=== PATIENT | male | born 1955 | race Caucasian/White ===

== ENCOUNTER → 2016-05-28 | Outpatient (CLI) | payer BC ==
[~2016-05-28] MED LIST: ASPIRIN81 M1 PO; AUGMENTIN 875 M1 TAB PO; BACTRIM DS 8001 TA1 PO; CIPRODEX 0.3%-7.5 ML OT; CLINDAMYCIN HC300 MG PO; EFFIENT10 MG PO; GABAPENTIN300 MG PO; GLIPIZIDE10 M2 PO; GLYBURIDE5 MG PO; KEFLEX500 MG PO; LOSARTAN POTASS25 M1 PO; METFORMIN1000 MG PO; METOPROLOL SR50 MG PO; NEURONTIN300 MG PO; NORVASC5 MG PO; NOVOLOG 701 UNIT/0.0 SC; RELION NOV100 UNIT/1 SQ; SIMVASTATIN40 MG PO; TOPROL XL25 MG PO; TREXALL10 MG PO; ZYRTEC10 MG PO
[2016-05-28 15:06] LABS: INTERNATIONAL NORM RATIO 1.2 (2.0-3.5); PROTHROMBIN TIME 12.7 SECONDS (9.0-12.4)
== END | disposition home or self-care (01) ==
LOC: LAB 14:17
PROVIDERS: Internal Medicine
DX: I48.91 Unspecified atrial fibrillation (principal)

== ENCOUNTER → 2016-08-29 | Outpatient (CLI) | payer BC ==
[2016-08-29 16:33] LABS: INTERNATIONAL NORM RATIO 1.5 (2.0-3.5); PROTHROMBIN TIME 16.1 SECONDS (9.0-12.4)
== END | disposition home or self-care (01) ==
LOC: LAB 15:59
PROVIDERS: Internal Medicine
DX: I48.91 Unspecified atrial fibrillation (principal)

== ENCOUNTER 2016-12-31 15:57 | Inpatient (IN) | payer BC ==
[~2016-12-31] VITALS: Ht 165.1 cm; Wt 118.1 kg
--- NOTE | ~2016-12-31 | PR ---
[place], [place] PROGRESS NOTE NAME: RAFI FOSTER UNIT #: [id number] ROOM: 415 DOCTOR: CORWIN ZEPEDA MD BIRTHDATE: [birth year] DOS: 01/04/2017 SUBJECTIVE: The patient is very well known to us. He was admitted recently with osteomyelitis of the right big toe and sepsis. The patient is not having any new complaints this morning. He did have a debridement yesterday. OBJECTIVE: VITAL SIGNS: Pressure is 132/54, pulse of 64, respirations 20, temperature 98.0. LUNGS: Clear. HEART: Regular. ABDOMEN: Obese. EXTREMITIES: No edema, evidence of stasis dermatitis, both legs. The right big toe, dressings were removed. The wound is very large, about affecting the whole base of the big toe, which is about at least a centimeter or more deep. The wound looks clean without any evidence of cellulitis, no drainage noted. LABORATORY DATA: No labs available. ASSESSMENT AND PLAN: 1. Osteomyelitis of the distal and proximal phalanx of the great toe, septic arthritis and cellulitis with sepsis, on IV Rocephin. A PICC line has been placed and the patient is being discharged on IV antibiotics. 2. Severe peripheral vascular disease. He was admitted to the hospital last in February 2016, underwent a CT angiogram. He wanted to go to [facility] for procedure. He was sent there late February as an outpatient. He was seen by Vascular Surgery, but nothing further was done and after that he never followed up in the office. He called about 2 weeks ago for an antibiotic for the foot, but I did not see him. So, this time, I did speak to the patient's about having a CT angiogram done as an outpatient again and possible revascularization. 3. Type 2 diabetes mellitus, poorly controlled. His blood sugar was 166 this morning. His hemoglobin A1c is 10.5 indicating his poor control. He is encouraged to take his insulin, which he mostly refuses to take because his insurance does not pay for it. [place], [place] PROGRESS NOTE NAME: RAFI FOSTER UNIT #: [id number] ROOM: 415 DOCTOR: CORWIN ZEPEDA MD BIRTHDATE: [birth year] CORWIN ZEPEDA MD CM:PNTRANS [id number] CORWIN ZEPEDA MD 01/04/17 1148 interface
--- NOTE | ~2016-12-31 | PR ---
[place], [place] PROGRESS NOTE NAME: RAFI FOSTER UNIT #: [id number] ROOM: 415 DOCTOR: PIERCE IRWIN DPM BIRTHDATE: [birth year] DOS: 01/04/2017 SUBJECTIVE: The patient presents 1 day postop I and D with bone biopsy, right hallux. The patient feels improvement at this time. The patient is apparently being discharged later this morning. OBJECTIVE: Upon removal of dressing and packing, there is mild erythema still surrounding the hallux. No signs of purulent drainage or foul odor. Postop site is improving. ASSESSMENT: Postop I and D with bone biopsy, right hallux. PLAN: Packing and dressing change, wet to dry dressing at this visit. Home nursing will continue same orders. The patient will be seen at the [facility] for possible hyperbaric oxygen consultation and possible wound VAC consultation. We will notify Dr. Anthony of the patient's status and we will follow the patient if need be. PIERCE IRWIN DPM CM:PNTHO [id number] [id number] PIERCE IRWIN DPM 01/04/171829 interface
--- NOTE | ~2016-12-31 | PR ---
[place], [place] PROGRESS NOTE NAME: RAFI FOSTER UNIT #: [id number] ROOM: 415 DOCTOR: PAVEL KEARNEY,ANGELLA Reyes BIRTHDATE: [birth year] DOS: 01/02/2017 SUBJECTIVE: The patient with diabetic foot ulcer involving the right big toe with osteomyelitis. The patient apparently is being taken for surgery by the foot doctor tomorrow for a bone biopsy as discussed with Dr. Norton the wound doctor and Dr. Merida foot doctor is following her. Positive blood cultures for gram-negative bacilli. The patient is on meropenem, vancomycin and Zosyn. The patient for PICC line placement for IV antibiotics. IMPRESSION: 1. Type 2 diabetes mellitus, uncontrolled with hemoglobin A1c of 10.7 with poor compliance with treatment and diet. 2. Coronary artery disease of the [place] vessels without chest pains. 3. Severe peripheral arterial disease with bilateral common femoral artery stenosis. 4. Poor compliance with treatment and followup and poor insight into medical issues. 5. Benign essential hypertension. Blood pressure being monitored and treated. ANGELLA ZHAO MD CM:PNTRANS [id number] ANGELLA ZHAO MD 01/03/17 0534 interface
--- NOTE | ~2016-12-31 | O ---
[place], [place] OPERATIVE NOTE NAME: RAFI FOSTER UNIT #: [id number] ROOM: 415 DOCTOR: ALEKSANDRA BLOUNT DPM BIRTHDATE: [birth year] DOS: 01/03/2017 SURGEON: Aleksandra Blount DPM. PREOPERATIVE DIAGNOSIS: Infected ulceration, right great toe with probable abscess and osteomyelitis. POSTOPERATIVE DIAGNOSIS: Infected ulcer, right great toe with small abscess and osteomyelitis. PROCEDURE: Incision and drainage of abscess, right great toe with bone biopsy. ESTIMATED BLOOD LOSS: About 3 mL. ANESTHESIA: Administered per anesthesia record. INJECTABLES: 10 mL of 0.5% Marcaine plain. COMPLICATIONS: None. DESCRIPTION OF PROCEDURE: After proper preoperative evaluation, the patient was brought in the OR and placed on the OR table in supine position. Anesthesia was then administered per anesthesia record. Next, a total of 10 mL of 0.5% Marcaine plain was injected in field block fashion proximal to the right great toe. The area was then prepped and draped in usual sterile manner. Right foot was lowered to the surgical field. Attention was directed to the plantar surface of the right great toe where there is to be a fairly large ulceration. There was noted to be some erythema and edema around the ulceration mostly proximal and plantarly. Next, using a rongeur, a necrotic or nonviable tissue was debrided from the wound. Please note that the interphalangeal joint of the great toe was exposed and bone was exposed. Also, of note was that the FHL tendon was ruptured and proximal secondary to the infection. At this time, a [place] elevator was used, and it was found that there was found to be about 2-3 cm sinus tract proximally. This area was incised, and there was found to be a small abscess containing about 1 mL of purulent drainage. At this time using a rongeur, bone biopsy were taken from the head of the proximal phalanx. The bone was found to be very soft and most likely infected. There was no purulence in the bone. Bone cultures were then taken to be sent for Eddie stain and culture and sensitivity aerobic and anaerobic. Next, using a pulse air conditioning installer approximately 3 liters of normal saline was irrigated through the wound. There was good bleeding noted to the wound. There were no signs of any necrotic tissue remaining. A Bovie was used to cauterize any bleeders as necessary. The wound was now very clean and packing was applied followed by 4 x 4s, ABD, Kerlix and Sonny wrap. CFT was maintained to the digit throughout the whole procedure. The patient tolerated procedure and anesthesia well and was transported to recovery room with vital signs stable and intact. He will be followed up tomorrow for dressing change. [place], [place] OPERATIVE NOTE NAME: KRISTINRAFI W UNIT #: [id number] ROOM: [facility] DOCTOR: ALEKSANDRA BLOUNT DPM BIRTHDATE: [birth year] ALEKSANDRA BLOUNT DPM CM:OPRECORD:OPERATIVE NOTE 2 2 ALEKSANDRA BLOUNT DPM 01/03/17832 interface
--- NOTE | ~2016-12-31 | PR ---
[place], [place] PROGRESS NOTE NAME: RAFI FOSTER [facility] #: [id number] UNIT #: [id number] ROOM: 415 DOCTOR: DUKE AntunezAMY BIRTHDATE: [birth year] DOS: 01/02/2017 SUBJECTIVE: The patient states that he feels okay. He did feel some chills during the night. His toe does have some discomfort associated with it. He states it is really not severe, but he has noticed some discomfort. No other specific complaints are noted. He did have a low-grade temperature during the night of 99.4 to 99.6, but no fever spikes. OBJECTIVE: VITAL SIGNS: Today, his temperature is 98.6, pulse is 69, respirations are 20 and blood pressure is 159/70. SKIN: The dressing was removed. The wound looks about the same as yesterday. It does not seems to have deteriorated. There is no odor. There is some deeper area still present as before. The erythema that was present seems to have gone down a little bit and has not advanced up the foot that I can tell and that does not seem to have worsened. LABORATORY DATA: He does not have any blood work done or any blood work this morning. His white count was not reordered, but he does have a very high elevated hemoglobin A1c of 10.7, his CRP is elevated at 11 and his sed rate is 73. He did have his Doppler ultrasound done which is suspicious of significant right femoral popliteal disease, consideration of a CT angiogram for further evaluation and no significant arterial occlusive disease in the left leg. ASSESSMENT AND PLAN: Diabetic foot ulcer, Villanueva stage 3, with osteomyelitis, bacteremia. He is on IV antibiotics, vancomycin as well as Zosyn. The wound culture from yesterday shows many white blood cells, a few Gram-positive cocci and moderate Gram-negative bacilli. He did have another positive blood culture yesterday at 10 in the morning. His initial wound culture grew Proteus. He is going to have IV antibiotics and we will add Santyl to the regimen now for wound care. However, he does have a fairly large ulceration on his right great toe as well as acute osteomyelitis and evidence of septic arthritis. Surgical intervention may be appropriate. Podiatry has not seen the patient yet, but they will be seeing the patient today. He does have some arterial disease as well and this may need to be further worked up as well. This patient may be a candidate for hyperbaric oxygen in the future depending on how he responds to treatment. [place], [place] PROGRESS NOTE NAME: RAFI FOSTER UNIT #: [id number] ROOM: [facility] DOCTOR: AMY WALL M.D. BIRTHDATE: [birth year] AMY WALL MD CM:ALMAS [id number] AMY WALL M.D. 01/02/17 1246 interface
--- NOTE | ~2016-12-31 | CON ---
[place], [place] REPORT OF CONSULTATION [id number] UNIT #: [id number] ROOM: 415 DOCTOR: DUKE AntunezAMY BIRTHDATE: [birth year] DOS: 01/01/2017 WOUND CARE CONSULTATION CHIEF COMPLAINT: Right toe ulceration. HISTORY OF PRESENT ILLNESS: This is a 61-year-old old male who was admitted to the Emergency Room Department. He apparently has been having trouble with an ulcer of his right great toe for approximately 1 month now. He had been using some topical Neosporin on it without any improvement and has been treated with oral antibiotics as outpatient a week prior to him coming to the ER, but felt that the wound was getting worse and did not notice any improvement. He is diabetic and has never had an ulcer of his toe before. He was admitted for an infection of the right great toe to the Emergency Department. PAST MEDICAL HISTORY: Significant for the following: Atrial fibrillation with a rapid ventricular response, left leg cellulitis and morbid obesity with a BMI of 40-44.9, history of sepsis. He is status post angioplasty 10 years ago. He says he has had two heart stents in, arthroscopy of the right knee and tonsillectomy. He also has had problems with venous disease as well in the past. He has never had any leg ischemia that he is aware of. Rheumatoid arthritis. Medical charts also indicate peripheral vascular disease, high-grade stenosis of the superficial femoral artery, bilateral stenosis of the common femoral and of both sides. SOCIAL HISTORY: He does not smoke or drink. He is employed and works on his feet for several hours a day. FAMILY HISTORY: Hypertension, diabetes, coronary artery disease, cerebrovascular accident. ALLERGIES: No known drug allergies. MEDICATIONS: Current medications from home are methotrexate 10 mg p.o. on , aspirin 81 daily, simvastatin 20 daily, losartan 25 p.o. daily, gabapentin 300 daily, Toprol-XL 25 p.o. b.i.d. REVIEW OF SYSTEMS: The patient did have a fever last night upon admission and during the fever he felt chills. He really has no pain with this wound. He has not had any debridement of the wound or Podiatry followup in the past. He does not have any special diabetic shoes. He denies any chest pain, shortness of breath, nausea, vomiting, abdominal pains, or diarrhea and no pain currently with the wound at this time, The patient reports also that he is on Coumadin, although I do not see that on his medication list, so we will see if we can verify this. PHYSICAL EXAMINATION: VITAL SIGNS: Temperature today is 98.2, pulse of 72, respirations are 20, blood pressure is 159/72. The patient, however, did have a fever last night of 102.4, but this morning he is afebrile. [place], [place] REPORT OF CONSULTATION NAME: RAFI FOSTER UNIT #: [id number] ROOM: 415 DOCTOR: AMY WALL M.D. BIRTHDATE: [birth year] GENERAL: This is a male who is pleasant, cooperative, in no acute distress. HEENT: Oropharynx is clear. Sclerae nonicteric. NECK: Supple. There is no JVD. LUNGS: Fairly clear. There is fine crackles in the bases. CARDIOVASCULAR: S1, S2. Regular rate and rhythm. ABDOMEN: Morbidly obese and soft. EXTREMITIES: He has chronic venous stasis changes and no calf tenderness. He has a fairly large ulceration of the right great toe. There is a strong odor coming from the wound. There is associated erythema of the right great toe and swelling noted. There is a large amount of devitalized tissue that is measuring approximately 2.5 x 2 x 0.2 cm in depth. There is definitely undermining noted as well from 12-6 o'clock with a maximum depth of 0.5. LABORATORY DATA: From yesterday show white count of 13,000, hemoglobin 14, platelets of 384. Chem-7 has sodium of 136, potassium 4.3, chloride of 103, BUN of 18, creatinine of 0.84, glucose is 170. Albumin is 3.2. I do not see any new labs today. There is no ESR, CRP, or hemoglobin A1c. His wound culture from the ER is growing heavy gram-negative bacilli. Blood cultures are positive with gram-negative bacilli as well. His x-ray of his toe shows a soft tissue ulcer with mild cortical irregularity of the proximal and distal phalanx of the right great toe suspicious for osteo. Followup MRI or 3-phase bone scan is recommended. Due to the presence of infection and obvious large amount of necrosis present, a bedside debridement was done. It was recommended, the patient was agreeable. The area was debrided of devitalized tissues through subcutaneous. I did not appreciate any bone, although there was an area where the depth was noted to be quite deep. There was brisk bleeding that was controlled with pressure and silver nitrate was applied. The post-debridement measurements are 2.9 x 2 x 1.2 in depth in one of the deepest part of the area. His MRI was just reported and is back already, I see the result is showing a large focus of ulceration along the medial aspect of the first toe with extensive cellulitis and soft tissue gas. There is no drainable abscess. There is acute osteo and osseous destruction of the distal and proximal phalanx of the great toe with evidence of septic arthritis of the interphalangeal joints. Soft tissue swelling is noted as well. ASSESSMENT AND PLAN: Diabetic foot ulcer that is infected with osteomyelitis. There is bacteremia as well, which is noted. Debridement was done at the bedside; however, after the review of the MRI, the patient may benefit from further surgical debridement, possible bone debridement, so Podiatry consultation is also going to be done as well. In the meantime, we can use Amaru Ag ribbon to the area until further orders are written by Podiatry. The patient may benefit from hyperbaric oxygen in the future; however, he has to have 30 days of wound care prior to being considered an HBO candidate. I would also recommend to get baseline ESR, CRP, hemoglobin A1c as well as a baseline EKG and chest x-ray while he is in-house if we are going to be considering hyperbaric oxygen in the future, but this patient may need further surgical intervention and also arterial studies were ordered. Thank you for the consult. I will follow along with you. [place], [place] REPORT OF CONSULTATION NAME: KRISTINRAFI W UNIT #: [id number] ROOM: 415 DOCTOR: AMY WALL M.D. BIRTHDATE: [birth year] AMY WALL MD CM:CONSTR:REPORT OF CONSULTATION 99 01/07/17 9039 interface
--- NOTE | ~2016-12-31 | CON ---
[place], [place] REPORT OF CONSULTATION NAME: [facility]OST[facility] #[facility] [id number] UNIT #: [id number] ROOM: 415 DOCTOR: ALIDA WADEPIERCE J BIRTHDATE: [birth year] DOS: 01/02/2017 SUBJECTIVE: The patient is a 61-year-old male with chief complaint of infected ulceration of the right great toe. The patient was treated previously by Dr. Munoz for approximately 1 month with outpatient oral antibiotics. The patient subsequently went to the Emergency Room on 12/31/2016 after the toe became worse. The patient was subsequently admitted. PAST MEDICAL HISTORY: The patient has a past medical history of atrial fibrillation, morbid obesity with BMI of 40.0 to 44.9, RA, [place] at age 36, essential hypertension. PAST SURGICAL HISTORY: History of coronary artery stents. SOCIAL HISTORY: Denies smoking, illicit drugs or alcohol use. FAMILY HISTORY: Father and mother both , age unknown. 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 ALLERGIES: None. PHYSICAL EXAMINATION: EXTREMITIES: Lower extremity examination: Pedal pulses diminished, bilateral. Chronic venous stasis; bilateral lower extremity. The patient has an ulceration in the plantar aspect of the right hallux measuring approximately 2.6 x 2 x 0.2 cm. The patient had the wound debrided by Dr. Norton yesterday. There is mild serous drainage to the site. There is minimal soft tissue coverage overlying the bone of the plantar medial hallux. There appears to be no proximal sinus tract at this time, appears to be no drainable abscess. The patient's MRI of the right foot revealed ulceration, medial aspect, first right toe, with soft tissue gas, extensive cellulitis, no drainable abscess identified. Acute osteomyelitis and osseous destruction of the distal and proximal phalanx of the great toe with evidence of septic arthritis of the IPJ, soft tissue swelling, and edema. Results of the ultrasound arterial exam revealed suspicion of significant right femoral popliteal disease. Additionally, clinically, after Dr. Norton removed the tissue with debridement, there does not appear to be acute underlying pocket that needs to be drained stat. The patient will be taken for surgical intervention tomorrow morning by Dr. Blount with debridement and bone biopsy. Discussed with the patient and his . He will also need vascular intervention due to the vascular findings and that he is at risk to lose his toe or lower extremity due to the decreased arterial flow. They both understood this, understand the risks and complications associated with the procedure. The patient has Infectious Disease on the case for IV antibiotic management. The patient is going for a PICC line today and the patient will be n.p.o. after midnight tonight and surgical consent for incision and drainage with debridement and bone biopsy of the right hallux to be performed tomorrow by Dr. Blount. [place], [place] REPORT OF CONSULTATION NAME: KRISTINRAFI W UNIT #: [id number] ROOM: [facility] DOCTOR: PIERCE IRWIN DPM BIRTHDATE: [birth year] PIERCE IRWIN DPM CM:CONSTR:REPORT OF CONSULTATION 1216 01/05/17 0700 interface
--- NOTE | ~2016-12-31 | DS ---
[place], [place] DISCHARGE SUMMARY [id number] UNIT #: [id number] ROOM: 415 DOCTOR: ANGELLA ZHAO MD BIRTHDATE: [birth year] DOS: 01/03/2017 DISCHARGE DIAGNOSES: 1. Diabetic foot ulcer with incision and drainage performed of the right great toe. 2. Osteomyelitis of the right great toe related to diabetic foot ulcer. 3. Uncontrolled type 2 diabetes mellitus with controlled blood sugars during this hospital stay. 4. Coronary artery disease of the [place] vessels without chest pain. 5. Severe peripheral arterial disease, bilateral common femoral artery stenosis. 6. Poor compliance with treatment and poor insight into medical issues. 7. Benign essential hypertension. 8. Obesity. 9. Rheumatoid arthritis. 10. Mixed hyperlipidemia. 11. Benign essential hypertension. HOSPITAL COURSE: 1. The patient presented to the Emergency Department with progressive infection involving the right great toe for about a month, which was treated with antibiotics as an outpatient. The patient was found to have a large necrotic 2 cm wound on the bottom and the outside of the right great toe with surrounding area of redness and cellulitis. The wound was about 3 mm deep and was debrided by Dr. Norton, the wound doctor and then later on taken for surgery by Dr. Merida, the foot doctor this morning for wound debridement and cultures. The patient was seen by Infectious Disease specialist, Dr. Olivarez and she has recommended IV antibiotics, Rocephin 2 grams IV for 6 weeks, which is being arranged. The patient does not want to go to intermediate facility, so he will be sent home with the visiting nurses and follow up with [facility] and the foot doctors and Dr. Olivarez, the ID specialist. We are trying to arrange IV antibiotics for him for home. 2. Uncontrolled type 2 diabetes mellitus with better controlled sugars during his stay at the hospital. The patient has known poor compliance with medical treatment. 3. Early signs of sepsis and blood cultures growing gram-negative bacilli and Proteus mirabilis growing in one of the culture bottles sensitive to all antibiotics except for tetracycline. 4. Benign essential hypertension with controlled blood pressures. 5. Severe peripheral arterial disease with previous history of bilateral common femoral artery stenosis. 6. Coronary artery disease of [place] vessels without chest pains. LABORATORY DATA: Hemoglobin 13.5, white cell, no leukocytosis, platelets normal. Wound cultures growing Proteus mirabilis. Blood cultures growing gram-negative bacilli. DISCHARGE MANAGEMENT: IV Rocephin 2 gm daily for 6 weeks. The patient to follow up with [facility] and Dr. Olivarez, the ID specialist. [place], [place] DISCHARGE SUMMARY NAME: RAFI FOSTER UNIT #: [id number] ROOM: [facility] DOCTOR: PAVEL KEARNEY,ANGELLA Reyes BIRTHDATE: [birth year] DISCHARGE MEDICATIONS: Lipitor 40 mg a day, Plavix 75 mg a day, glipizide 10 mg daily, gabapentin 300 mg b.i.d., losartan 25 mg a day, amlodipine 10 mg a day, 70/30 insulin 20 units subcu b.i.d., metoprolol 25 mg b.i.d., continue Coumadin as he was taking at home and hold patient's methotrexate until infection is resolved. ANGELLA ZHAO MD CM:ROB [id number] 1501 ANGELLA ZHAO MD 01/03/17 1501 interface
--- NOTE | ~2016-12-31 | WRIGHTHP ---
[place], [place] PATIENT HISTORY AND PHYSICAL EXAM NAME: RAFI FOSTER [facility] #: [id number] UNIT #: [id number] ROOM: 415 DOCTOR: ANGELLA ZHAO MD BIRTHDATE: [birth year] DOS: 12/31/2016 HISTORY OF PRESENT ILLNESS: The patient is a 61-year-old gentleman with a past medical history of: 1. Benign essential hypertension. 2. Long-standing type 2 diabetes mellitus, insulin requiring. 3. Poor compliance with treatment and poor insight into his medical issues. 4. Mixed hyperlipidemia. 5. Rheumatoid arthritis. 6. Coronary artery disease of shoshone-paiute vessels. 7. Severe peripheral vascular disease with high grade stenosis of the superficial femoral artery, bilateral stenosis of the common femoral, both sides. The patient presented to the Emergency Department at [facility] for progressive infection involving the right great toe. The patient had this wound at the right toe with spreading infection for about 1 month, which was treated as an outpatient with oral antibiotics. In the ER, the patient was found to have large necrotic 2 cm ulcer/wound of the right great toe and he also had developed fever. The patient was recommended for admission. The foot doctor, Infectious Disease specialists and the client application support specialist have been consulted. No chest pain. No shortness of breath. No GI or urinary symptoms. REVIEW OF SYSTEMS: LUNGS: No increasing shortness of breath or wheezing. GASTROINTESTINAL: No nausea, vomiting, diarrhea, constipation. CARDIOVASCULAR: No chest pains or palpitations. HOME MEDICATIONS: Gabapentin, losartan, amlodipine, metoprolol. ALLERGIES: No known drug allergies. PHYSICAL EXAMINATION: GENERAL: The patient alert and oriented x 3, moderately obese, in no visible distress. HEENT AND NECK: Extraocular movements are intact. Sclerae are anicteric. Oral mucosa is moist and clean. No obvious facial weakness. Neck is supple without any lymphadenopathy. No thyromegaly. No JVD. No carotid arterial bruits. LUNGS: Clear to auscultation. No wheezing. No rhonchi. CARDIOVASCULAR SYSTEM: Heart rate is regular in rate and rhythm. S1 and S2 normally audible. No significant murmur or any other abnormal cardiac sounds. ABDOMEN: Soft, nontender. No obvious organomegaly. Bowel sounds are present. No obvious herniation. EXTREMITIES: Swelling of the right great toe with redness, inflammation spreading around the wound at the bottom of the right great toe, measuring about 2 cm x 2 cm with necrotic base, about 3 mm deep and foul smelling. CENTRAL NERVOUS SYSTEM: Alert and oriented x 3. Cranial nerves II-XII are intact. Speech is normal. The patient is able to move all extremities. Normal [place], [place] PATIENT HISTORY AND PHYSICAL EXAM NAME: RAFI FOSTER UNIT #: [id number] ROOM: 415 DOCTOR: ANGELLA ZHAO MD BIRTHDATE: [birth year] muscle strength. Deep tendon reflexes are equal on both sides. Plantars were downgoing. LABORATORY DATA: Blood cultures growing gram-negative bacilli. White cell count of 13,000. IMPRESSION: 1. The patient with diabetic right foot ulcer, necrotic wound at the bottom of the right great toe with spreading cellulitis and infection to be treated with debridement. Wound care, Podiatry and Infectious Disease are on consult and patient started on IV vancomycin by ID. Wound cultures have been sent. 2. Early signs of sepsis with blood cultures growing gram-negative bacilli, 3/4 bottles. I will add Zosyn to the antibiotics and watch closely. 3. Type 2 diabetes mellitus. We will monitor blood sugars and treat accordingly. The patient has uncontrolled diabetes and is poorly compliant with treatment and does not take his insulin at home. 4. Benign essential hypertension. We will monitor blood pressures and treat accordingly. 5. History of coronary artery disease of shoshone-paiute vessels without chest pains or any other symptoms. 6. Severe peripheral arterial disease with bilateral stenosis of left common femoral arteries on CT angiogram done in the past. 7. Poor compliance with medical treatment and followup and insulin and medications and poor insight into medical issues, which makes his treatment even more difficult and complicated. ANGELLA ZHAO MD CM:HISPHYS:PATIENT HISTORY AND PHYSICAL EXAMINATION [id number] ANGELLA ZHAO MD 01/01/17 1123 interface
[2016-12-31 16:03] VITALS: BP 181/70
[2016-12-31 16:31] VITALS: BP 140/86
[2016-12-31 16:37] LABS: HEMATOCRIT 43.6 % (42.0-52.0); HEMOGLOBIN 14.4 g/dl (14.0-18.0); MEAN CELL VOLUME 81.6 fl (80.0-94.0); MEAN PLATELET VOLUME 8.7 fl (9.6-12.3); PLATELET COUNT AUTOMATED 384 10*3/uL (130-400); RED BLOOD COUNT 5.34 10*6/uL (4.50-5.90); RED CELL DISTRI WIDTH 15.8 % (0-14.5); WHITE BLOOD COUNT 13.3 10*3/uL (4.8-10.8)
[2016-12-31 16:52] LABS: ALBUMIN 3.2 gm/dl (3.1-4.5); ALKALINE PHOSPHATASE 137 U/L (45-117); BILIRUBIN, TOTAL 0.6 mg/dl (0.2-1.0); BUN 18 mg/dl (7-24); CARBON DIOXIDE 26 mmol/L (21-32); CHLORIDE 103 mmol/L (98-107); EST GLOM FILT AFRICAN AMERICAN > 60 ml/min; GLUCOSE 170 mg/dL (65-99); POTASSIUM 4.3 mmol/L (3.5-5.1); SGOT/AST 27 IU/L (3-35); SGPT/ALT 41 U/L (12-78); SODIUM 136 mmol/L (136-145); TOTAL PROTEIN 8.1 gm/dL (6.4-8.2)
[2016-12-31 16:56] LABS: BASOPHIL # 0.1 10*3/uL (0-0.1); BASOPHILS 1 % (0-1); EOSINOPHIL # 0.1 10*3/uL (0-0.4); EOSINOPHILS 1 % (1-4); LYMPHOCYTE # 1.5 10*3/uL (1.3-4.4); MONOCYTE # 1.6 10*3/uL (0.1-1.0); NEUTROPHILS 75 % (47-73); TOTAL CELLS COUNTED 100 #CELLS
[2016-12-31 16:57] LABS: PLATELET SUFFICIENCY NORMAL (NORMAL)
[2016-12-31 18:00] VITALS: BP 134/76
[2016-12-31 18:09] VITALS: BP 170/80
[2016-12-31] MEDS ORDERED: NOVOLOG MI100 UNIT/2 SQ (19:39)
[2016-12-31] MEDS ORDERED: NEURONTIN300 MG PO (19:39)
[2016-12-31] MEDS ORDERED: NATURE'S BLEND F1 MG PO (19:40)
[2016-12-31] MEDS ORDERED: PLAVIX75 M1 PO (19:41)
[2016-12-31] MEDS ORDERED: JANTOVEN6 M1 PO ×2 (19:41→19:58)
[2016-12-31] MEDS ORDERED: LIPITOR40 MG PO (19:42)
[2016-12-31] MEDS ORDERED: NORVASC10 MG PO (19:42)
[2016-12-31 20:00] VITALS: BP 157/91
[2017-01-01] VITALS: BP 158/85
[2017-01-01 08:00] VITALS: BP 151/79; BP 152/78
[2017-01-01 12:00] VITALS: BP 159/72
[2017-01-01 16:00] VITALS: BP 138/62
[2017-01-01 20:00] VITALS: BP 130/48
[2017-01-02] VITALS: BP 151/57
[2017-01-02 06:50] LABS: BILIRUBIN NEGATIVE (NEGATIVE); BLOOD TRACE-LYSED (NEGATIVE); CLARITY CLEAR (CLEAR); COLOR YELLOW (YELLOW); GLUCOSE NEGATIVE (NEGATIVE); KETONE NEGATIVE (NEGATIVE); LEUKO ESTERASE NEGATIVE (NEGATIVE); NITRITE NEGATIVE (NEGATIVE); PROTEIN TRACE (NEGATIVE)
[2017-01-02 07:01] LABS: URINE REFLEX COMMENT NO (NO)
[2017-01-02 07:47] LABS: HEMOGLOBIN A1c 10.7 % (4.8-5.6)
[2017-01-02 08:00] VITALS: BP 159/70
[2017-01-02 12:00] VITALS: BP 150/68
[2017-01-02 16:00] VITALS: BP 128/96
[2017-01-02 20:00] VITALS: BP 153/51
[2017-01-03] VITALS (9 sets, daily range): BP systolic 127–161; BP diastolic 53–78
[2017-01-03 10:25] LABS: BASO % 0.4 % (0.0-1.0); EOS # 0.4 10*3/uL (0.0-0.4); EOS % 3.6 % (1.0-4.0); HEMATOCRIT 41.6 % (42.0-52.0); HEMOGLOBIN 13.5 g/dl (14.0-18.0); LYMPH # 1.9 10*3/uL (1.3-4.4); LYMPH % 18.8 % (27.0-41.0); MEAN CELL VOLUME 82.1 fl (80.0-94.0); MEAN CORPUSCULAR HGB 26.6 pg (27.0-31.0); MEAN CORPUSCULAR HGB CONC 32.5 g/dl (33.0-37.0); MEAN PLATELET VOLUME 8.9 fl (9.6-12.3); MONO # 1.3 10*3/uL (0.1-1.0); MONO % 13.3 % (3.0-9.0); NEUT # 6.3 10*3/uL (2.3-7.9); NEUT % 63.6 % (47.0-73.0); PLATELET COUNT AUTOMATED 320 10*3/uL (130-400); RED BLOOD COUNT 5.07 10*6/uL (4.50-5.90); WHITE BLOOD COUNT 9.9 10*3/uL (4.8-10.8)
[2017-01-03 10:53] LABS: BUN 9 mg/dl (7-24); CARBON DIOXIDE 23 mmol/L (21-32); CHLORIDE 111 mmol/L (98-107); EST GLOM FILT AFRICAN AMERICAN > 60 ml/min; GLUCOSE 150 mg/dL (65-99); POTASSIUM 3.6 mmol/L (3.5-5.1); SODIUM 141 mmol/L (136-145)
[2017-01-03] MEDS ORDERED: CEFTRIAXON2 GM/50 ML IV (12:28)
[2017-01-04] VITALS: BP 132/54
[2017-01-04 07:37] LABS: BUN 11 mg/dl (7-24); C-REACTIVE PROTEIN 8.77 MG/DL (0-0.3); CARBON DIOXIDE 28 mmol/L (21-32); CHLORIDE 105 mmol/L (98-107); EST GLOM FILT AFRICAN AMERICAN > 60 ml/min; GLUCOSE 198 mg/dL (65-99); SODIUM 137 mmol/L (136-145)
[2017-01-04 07:52] LABS: BASO # 0.1 10*3/uL (0.0-0.1); BASO % 0.5 % (0.0-1.0); EOS # 0.5 10*3/uL (0.0-0.4); EOS % 4.4 % (1.0-4.0); HEMATOCRIT 41.9 % (42.0-52.0); HEMOGLOBIN 13.7 g/dl (14.0-18.0); LYMPH # 2.3 10*3/uL (1.3-4.4); LYMPH % 20.3 % (27.0-41.0); MEAN CELL VOLUME 82.6 fl (80.0-94.0); MEAN CORPUSCULAR HGB CONC 32.7 g/dl (33.0-37.0); MEAN PLATELET VOLUME 9.3 fl (9.6-12.3); MONO # 1.4 10*3/uL (0.1-1.0); MONO % 12.9 % (3.0-9.0); NEUT # 6.9 10*3/uL (2.3-7.9); NEUT % 61.6 % (47.0-73.0); PLATELET COUNT AUTOMATED 363 10*3/uL (130-400); RED BLOOD COUNT 5.07 10*6/uL (4.50-5.90); RED CELL DISTRI WIDTH 15.9 % (0-14.5); WHITE BLOOD COUNT 11.1 10*3/uL (4.8-10.8)
[2017-01-04 08:00] VITALS: BP 148/64
== END 2017-01-04 13:00 | disposition home or self-care (01) | DRG 854 ==
LOC: ED 15:57 → 4E 18:17 → EDHOLD 18:17 → 4E 18:21
PROVIDERS: Emergency Medicine; Hospitalist; Internal Medicine
PROC: 02HV33Z Insertion of Infusion Device into Superior Vena Cava, Percutaneous Approach (ICD-10-PCS; principal; 2017-01-03)
PROC: 0JDQ0ZZ Extraction of Right Foot Subcutaneous Tissue and Fascia, Open Approach (ICD-10-PCS; 2017-01-03)
PROC: 0QBQ0ZX Excision of Right Toe Phalanx, Open Approach, Diagnostic (ICD-10-PCS; 2017-01-03)
PROC: 0J9Q0ZZ Drainage of Right Foot Subcutaneous Tissue and Fascia, Open Approach (ICD-10-PCS; 2017-01-03)
DX: A41.9 Sepsis, unspecified organism (principal); M00.871 Arthritis due to other bacteria, right ankle and foot; E11.621 Type 2 diabetes mellitus with foot ulcer; E11.65 Type 2 diabetes mellitus with hyperglycemia; M86.8X7 Other osteomyelitis, ankle and foot; L02.611 Cutaneous abscess of right foot; Z68.41 Body mass index [BMI] 40.0-44.9, adult; E11.69 Type 2 diabetes mellitus with other specified complication; L97.519 Non-pressure chronic ulcer of other part of right foot with unspecified severity; I25.10 Atherosclerotic heart disease of native coronary artery without angina pectoris; I73.9 Peripheral vascular disease, unspecified; I77.1 Stricture of artery; I10 Essential (primary) hypertension; M06.9 Rheumatoid arthritis, unspecified; E78.2 Mixed hyperlipidemia; E66.9 Obesity, unspecified; L03.031 Cellulitis of right toe; I48.91 Unspecified atrial fibrillation; B96.4 Proteus (mirabilis) (morganii) as the cause of diseases classified elsewhere; Z79.4 Long term (current) use of insulin; Z79.899 Other long term (current) drug therapy; Z91.19 Patient's noncompliance with other medical treatment and regimen; Z90.49 Acquired absence of other specified parts of digestive tract; Z79.01 Long term (current) use of anticoagulants; Z83.3 Family history of diabetes mellitus; Z82.49 Family history of ischemic heart disease and other diseases of the circulatory system; Z82.3 Family history of stroke; Z95.5 Presence of coronary angioplasty implant and graft; I25.2 Old myocardial infarction

== ENCOUNTER → 2017-01-10 | Outpatient (CLI) | payer BC ==
[~2017-01-10] MED LIST changes: +CEFTRIAXON2 GM/50 ML IV; +JANTOVEN6 M1 PO; +LIPITOR40 MG PO; +NATURE'S BLEND F1 MG PO; +NORVASC10 MG PO; +NOVOLOG MI100 UNIT/2 SQ; +PLAVIX75 M1 PO
--- NOTE | ~2017-01-10 | PR ---
[place], [place] PROGRESS NOTE NAME: RAFI FOSTER UNIT #: [id number] ROOM: DOCTOR: JR WADEJANKI BIRTHDATE: [birth year] DOS: 01/10/2017 [facility] SUBJECTIVE: The patient had been inpatient at [facility] and seen by Dr. Mario Merida and his group and I and D and debridement and culture was taken while inhouse. MRI confirmed osteomyelitis. The patient is currently on IV Rocephin through Dr. Olivarez and has approximately 5 more weeks. There has been wet-to-dry dressing being performed daily by [facility]. The patient is a diabetic. His last A1c was over 10 and his last glucose was 247. The patient has some history of coronary artery disease and peripheral arterial disease on the right foot and lower leg. PHYSICAL EXAMINATION: It is noted that the wound is clean and healthy. There is callus tissue and debris and slough around the periphery. It is measuring 3.5 x 2 x 0.5 cm. No active purulence, odor or cellulitis noted. No deep tracking, no signs of acute or progressing infection. DP, PT pulses are faint, but dopplerable. Skin temperature is cool to the toes. Capillary refill time is within normal limits. IMPRESSION: Grade 3 diabetic ulceration of the plantar right great toe. Debridement was performed through subcutaneous with 15 blade to remove devitalized tissue and debris. Minimal bleeding was controlled via pressure. The patient tolerated procedure well. PLAN: 1. Evaluate. 2. We will put the patient on Puracol Ag daily to the area. We will work him up for hyperbaric oxygen therapy. He understands what HBO is and will be set up with Dr. Norton in order to have an evaluation. In the meantime, we will write orders to [facility] for Puracol Ag to the wound and I would like to see him back in 1 week at the wound care center for this complaint. [place], [place] PROGRESS NOTE NAME: RAFI FOSTER UNIT #: [id number] ROOM: DOCTOR: JANKI NORRIS DPM BIRTHDATE: [birth year] JANKI NORRIS DPM CM:ALMAS 5 [id number] JANKI NORRIS DPM 01/10/17 2336 interface
== END | disposition home or self-care (01) ==
LOC: WOUNDCARE 07:59
DX: E11.621 Type 2 diabetes mellitus with foot ulcer (principal); L97.412 Non-pressure chronic ulcer of right heel and midfoot with fat layer exposed; E11.51 Type 2 diabetes mellitus with diabetic peripheral angiopathy without gangrene; I25.10 Atherosclerotic heart disease of native coronary artery without angina pectoris; L84 Corns and callosities; E11.69 Type 2 diabetes mellitus with other specified complication; M86.9 Osteomyelitis, unspecified

== ENCOUNTER → 2017-01-13 | Outpatient (CLI) | payer BC ==
--- NOTE | ~2017-01-13 | CON ---
[place], [place] REPORT OF CONSULTATION NAME: RAFI FOSTER [facility] #: [id number] UNIT #: [id number] ROOM: DOCTOR: DUKE AntunezAMY BIRTHDATE: [birth year] DOS: 01/13/2017 CHIEF COMPLAINT: Diabetic foot ulcer. HISTORY OF PRESENT ILLNESS: This is a 61-year-old male with poorly controlled diabetes who presented to the hospital back around 2 weeks ago for a diabetic foot infection with acute osteomyelitis as well as bacteremia from the wound. The patient was treated with IV antibiotics. He had bone debridement. On Infectious Disease consultation, a PICC line was placed. He is on antibiotics for 6 weeks for osteomyelitis. He has had wound care for approximately 2 weeks now and continues to have open deep wound. He is being considered a candidate for hyperbaric oxygen treatment. He comes in today without any specific complaints. He was seen by Dr. Anthony last Friday and a debridement was done as well at that time. PAST MEDICAL HISTORY: Significant for hypertension, type 2 diabetes, poor compliance with diabetic control in the past, hyperlipidemia, rheumatoid arthritis, coronary artery disease. He is status post OH and stent placement, history of severe peripheral vascular disease with high grade stenosis of superficial femoral artery, bilateral stenosis of the common femoral on both sides. He does have a history of atrial fibrillation with rapid ventricular response. He has had a problem with left leg cellulitis, morbid obesity, and history of sepsis. He is status post arthroscopy of the right knee. He has had a history of venous leg ulcers as well. He has never had any stents or angiograms of the lower extremities that he is aware of. ALLERGIES: No known drug allergies. SOCIAL HISTORY: He is a nonsmoker, does not drink. He does work for 6-7 hours a day. He is a past smoker. He quit in his 30s, but did smoke for at least 30 years. MEDICATIONS: As follows: He is on Coumadin 6 mg tablets, gabapentin 300 p.o. b.i.d., glipizide 10 p.o. daily, Lipitor 40 daily, losartan 25 p.o. daily, metoprolol 25 mg b.i.d., amlodipine 10 mg daily, NovoLog 70/30 20 units b.i.d., Plavix 75 daily and Rocephin 1 gram every day for 6 weeks. REVIEW OF SYSTEMS: He really denies any chest pains or shortness of breath whenever asked specifically if he has ever been hospitalized for congestive heart failure, it sounds like he was hospitalized when he had his OH, but never had any problems with congestive heart failure since that hospitalization. He denies any angina, nausea, vomiting, abdominal pains, or diarrhea. He does get an occasional diarrhea, but he said that is not unusual for him. He is active and he is able to go to the gym and workout prior to his problem with his toe, so he has been active and has not had any problems with shortness of breath or chest pain. He knows that his sugars are not well controlled. He did have a hemoglobin A1c that was over 10 while he was in the hospital, he is aware of this and is willing to see the beet topper for diabetic teaching, so we will definitely see if we can schedule this for him. No further fevers or chills since he was treated in the hospital. His vitals from the . Repeat vitals [place], [place] REPORT OF CONSULTATION NAME: RAFI FOSTER Jacque UNIT #: [id number] ROOM: DOCTOR: AMY WALL M.D. BIRTHDATE: [birth year] were not done. PHYSICAL EXAMINATION: VITAL SIGNS: Today, temperature was 98.1, pulse of 64, respirations 18, blood pressure is 140/64, BMI is 37.6. GENERAL: This is a male who appears as his stated age, in no acute distress, pleasant and cooperative to examination. 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 He states this is chronic. HEENT: Extraocular movements are intact. Sclerae nonicteric. Oropharynx is clear. Tympanic membranes have a large amount of ear wax bilaterally and was unable to fully visualize the tympanic membrane. NECK: No JVD. LUNGS: Clear. CARDIOVASCULAR: S1, S2, regular rate and rhythm at this time. ABDOMEN: Morbidly obese, soft and nontender. EXTREMITIES: He has trace edema bilaterally with chronic venous stasis changes. His wound care is being provided by Dr. Anthony. The dressing was placed intact and now removed today. Left leg pedal pulses were difficult to feel. Toes were slightly cool. Capillary refill was normal. LABORATORY DATA: Last labs show white count of 11.1, hemoglobin of 13, platelets of 363. ESR was 73. He did have a glucose ranged from the average was 260. Hemoglobin A1c was 10.7 as stated above. CRP was 8.7. He had a chest x-ray which was no acute process. No pneumothorax. There is no mention of any kind of bullous disease. He had a foot MRI, which confirmed extensive cellulitis and acute osteomyelitis with destruction of the distal and proximal phalanx of the great toe, septic arthritis was also evident. His lower extremity arterial ultrasound shows suspicion significant right femoral popliteal disease, consider further evaluation with a CT angiogram. No definite occlusive disease seen on the left, but he did have flow in the dorsalis pedal artery was noted. There was some monophasic waveforms in the tibial vessels were noted as well on the right side. Micro cultures show he had positive blood cultures that were Proteus. Wound culture also showed Proteus and some Strep agalactiae. The wound debridement shows acute osteomyelitis. ASSESSMENT AND PLAN: Villanueva stage III diabetic foot ulcer of the right great toe. He has had 2 weeks of wound care, still has a very large open wound. At the end of 30 days of wound care, he should be considered hyperbaric candidate for adjuvant treatment. He does need to continue to work on his diabetic control. We will set up diabetic teaching for this. He also had some vascular disease noted on his arterial ultrasound, although on arterial ultrasound, he did have flow to the foot, but his PCP, Dr. Munoz has set up an appointment for him to have a CT angiogram repeated as an outpatient for possible revascularization. Apparently, he has had some consultation before with Vascular, but nothing was done in the past, so this is definitely going to be evaluated as well and worked up. In addition, the patient seems to be interested in hyperbaric oxygen. We discussed this with the patient and hopefully, he will be able to go and once 30 days of wound care has been completed, I will go ahead and obtain a baseline EKG for him. [place], [place] REPORT OF CONSULTATION NAME: RAFI FOSTER Jacque UNIT #: [id number] ROOM: DOCTOR: AMY WALL M.D. BIRTHDATE: [birth year] AMY WALL MD CM:CONSTR:REPORT OF CONSULTATION 0928 01/13/17 2313 interface
== END | disposition home or self-care (01) ==
LOC: WOUNDCARE 08:00
DX: E11.621 Type 2 diabetes mellitus with foot ulcer (principal); L97.512 Non-pressure chronic ulcer of other part of right foot with fat layer exposed; E11.69 Type 2 diabetes mellitus with other specified complication; M86.171 Other acute osteomyelitis, right ankle and foot; I10 Essential (primary) hypertension; E78.5 Hyperlipidemia, unspecified; M06.9 Rheumatoid arthritis, unspecified; I25.10 Atherosclerotic heart disease of native coronary artery without angina pectoris; I25.2 Old myocardial infarction; E11.51 Type 2 diabetes mellitus with diabetic peripheral angiopathy without gangrene; I48.91 Unspecified atrial fibrillation; E66.01 Morbid (severe) obesity due to excess calories; Z87.891 Personal history of nicotine dependence; Z79.01 Long term (current) use of anticoagulants

== ENCOUNTER → 2017-01-13 | Outpatient (CLI) | payer BC | END | disposition home or self-care (01) | LOC: CARD 09:00 | DX: E11.621 Type 2 diabetes mellitus with foot ulcer (principal) ==

== ENCOUNTER → 2017-01-17 | Outpatient (CLI) | payer BC ==
--- NOTE | ~2017-01-17 | PR ---
[place], [place] PROGRESS NOTE NAME: RAFI FOSTER UNIT #: [id number] ROOM: DOCTOR: JANKI NORRIS DPM BIRTHDATE: [birth year] DOS: 01/17/2017 SUBJECTIVE: The patient was seen at [facility]. The patient is here for followup of right great toe plantar surface ulceration. The patient has been doing bandage changes as directed and has no new complaints. PHYSICAL EXAMINATION: It is noted that the wound is measuring 2.9 x 1.6 x 0.3 cm, slough debris and devitalized tissue was debrided through subcutaneous with 15 blade, beefy red granular bleeding base was noted. No signs of active infection, no purulence nor odor or cellulitis, looks like osteomyelitis, is being managed well with local wound care and IV antibiotics. IMPRESSION: Grade 3 diabetic ulceration, healing well. PLAN: 1. Evaluate. 2. Debridement as described above. We will continue with Puracol AG every day. The patient is going out of town. He is having a family vacation to the [facility]. His is aware of how to do the dressing changes and what to look for. If there is any problem in the wound, we will see him back at the wound center in 2 weeks. He is to call if problems should arise in the meantime. JANKI NORRIS DPM CM:PNTRANS [id number] JANKI NORRIS DPM 01/17/17 1013 interface
== END | disposition home or self-care (01) ==
LOC: WOUNDCARE 00:18
DX: E11.621 Type 2 diabetes mellitus with foot ulcer (principal); L97.412 Non-pressure chronic ulcer of right heel and midfoot with fat layer exposed; L97.511 Non-pressure chronic ulcer of other part of right foot limited to breakdown of skin; E11.69 Type 2 diabetes mellitus with other specified complication; M86.071 Acute hematogenous osteomyelitis, right ankle and foot

== ENCOUNTER → 2017-01-31 | Outpatient (CLI) | payer BC ==
--- NOTE | ~2017-01-31 | PR ---
[place], [place] PROGRESS NOTE NAME: RAFI FOSTER UNIT #: [id number] ROOM: DOCTOR: JANKI NORRIS DPM BIRTHDATE: [birth year] DOS: 01/31/2017 SUBJECTIVE: The patient was seen for followup of right great toe ulcer. The patient was out of town last week on vacation, but did bandage changes as directed and has no new complaints. PHYSICAL EXAMINATION: It is noted that the ulcer looks great. It is healing nicely. It is beefy red and granular at the base for about 80% of it on the periphery. There is some slough and debris that was debrided through subcutaneous. Minimal bleeding was controlled via pressure. No signs of infection, deep tracking or purulent discharge or odor from the area. IMPRESSION: Grade 3 diabetic ulceration, progressing very well. PLAN: 1. Evaluate. 2. Debridement was performed. We will continue with Puracol and a dry dressing to the area daily and reappoint in 1 week for followup. JANKI NORRIS DPM CM:PNTRANS [phone] JANKI NORRIS DPM 01/31/17 1258 interface
== END | disposition home or self-care (01) ==
LOC: WOUNDCARE 02:39
DX: E11.621 Type 2 diabetes mellitus with foot ulcer (principal); L97.412 Non-pressure chronic ulcer of right heel and midfoot with fat layer exposed; E11.69 Type 2 diabetes mellitus with other specified complication; M86.071 Acute hematogenous osteomyelitis, right ankle and foot

== ENCOUNTER → 2017-02-07 | Outpatient (CLI) | payer BC | END | disposition home or self-care (01) | LOC: WOUNDCARE 02:09 | DX: E11.621 Type 2 diabetes mellitus with foot ulcer (principal); L97.412 Non-pressure chronic ulcer of right heel and midfoot with fat layer exposed; E11.69 Type 2 diabetes mellitus with other specified complication; M86.071 Acute hematogenous osteomyelitis, right ankle and foot; L97.511 Non-pressure chronic ulcer of other part of right foot limited to breakdown of skin; L97.521 Non-pressure chronic ulcer of other part of left foot limited to breakdown of skin; I25.10 Atherosclerotic heart disease of native coronary artery without angina pectoris; E78.5 Hyperlipidemia, unspecified; I10 Essential (primary) hypertension; Z87.891 Personal history of nicotine dependence; Z98.62 Peripheral vascular angioplasty status ==

== ENCOUNTER → 2017-02-14 | Outpatient (CLI) | payer BC | END | disposition home or self-care (01) | LOC: WOUNDCARE 01:40 | DX: E11.621 Type 2 diabetes mellitus with foot ulcer (principal); L97.511 Non-pressure chronic ulcer of other part of right foot limited to breakdown of skin; I25.10 Atherosclerotic heart disease of native coronary artery without angina pectoris; E78.5 Hyperlipidemia, unspecified; I10 Essential (primary) hypertension; Z98.62 Peripheral vascular angioplasty status; Z87.891 Personal history of nicotine dependence ==

== ENCOUNTER → 2017-02-26 | Outpatient (CLI) | payer BC | END | disposition home or self-care (01) | LOC: WOUNDCARE 03:56 | DX: E11.621 Type 2 diabetes mellitus with foot ulcer (principal); L97.511 Non-pressure chronic ulcer of other part of right foot limited to breakdown of skin; I25.10 Atherosclerotic heart disease of native coronary artery without angina pectoris; E78.5 Hyperlipidemia, unspecified; I10 Essential (primary) hypertension; Z87.891 Personal history of nicotine dependence ==

== ENCOUNTER → 2017-03-05 | Outpatient (CLI) | payer BC | END | disposition home or self-care (01) | LOC: WOUNDCARE 01:06 | DX: E11.621 Type 2 diabetes mellitus with foot ulcer (principal); L97.412 Non-pressure chronic ulcer of right heel and midfoot with fat layer exposed; E11.69 Type 2 diabetes mellitus with other specified complication; M86.071 Acute hematogenous osteomyelitis, right ankle and foot; I25.10 Atherosclerotic heart disease of native coronary artery without angina pectoris; E78.5 Hyperlipidemia, unspecified; I10 Essential (primary) hypertension; Z87.891 Personal history of nicotine dependence ==

== ENCOUNTER → 2017-03-12 | Outpatient (CLI) | payer BC | END | disposition home or self-care (01) | LOC: WOUNDCARE 04:19 | DX: E11.621 Type 2 diabetes mellitus with foot ulcer (principal); L97.412 Non-pressure chronic ulcer of right heel and midfoot with fat layer exposed; E11.69 Type 2 diabetes mellitus with other specified complication; M86.071 Acute hematogenous osteomyelitis, right ankle and foot; E78.5 Hyperlipidemia, unspecified; I25.10 Atherosclerotic heart disease of native coronary artery without angina pectoris; I10 Essential (primary) hypertension; Z87.891 Personal history of nicotine dependence ==

== ENCOUNTER → 2017-03-19 | Outpatient (CLI) | payer BC | END | disposition home or self-care (01) | LOC: WOUNDCARE 03:36 | DX: E11.621 Type 2 diabetes mellitus with foot ulcer (principal); L97.412 Non-pressure chronic ulcer of right heel and midfoot with fat layer exposed; E11.69 Type 2 diabetes mellitus with other specified complication; M86.071 Acute hematogenous osteomyelitis, right ankle and foot; I25.10 Atherosclerotic heart disease of native coronary artery without angina pectoris; E78.5 Hyperlipidemia, unspecified; I10 Essential (primary) hypertension; Z87.891 Personal history of nicotine dependence ==

== ENCOUNTER → 2017-04-02 | Outpatient (CLI) | payer BC | END | disposition home or self-care (01) | LOC: WOUNDCARE 01:05 | DX: E11.621 Type 2 diabetes mellitus with foot ulcer (principal); L97.412 Non-pressure chronic ulcer of right heel and midfoot with fat layer exposed; E11.69 Type 2 diabetes mellitus with other specified complication; M86.071 Acute hematogenous osteomyelitis, right ankle and foot; E78.5 Hyperlipidemia, unspecified; I25.10 Atherosclerotic heart disease of native coronary artery without angina pectoris; I10 Essential (primary) hypertension; Z87.891 Personal history of nicotine dependence ==

== ENCOUNTER → 2017-08-11 | Outpatient (CLI) | payer OTHER ==
[2017-08-11 15:02] LABS: BASO # 0.1 10*3/uL (0.0-0.1); BASO % 0.7 % (0.0-1.0); EOS # 0.4 10*3/uL (0.0-0.4); EOS % 4.5 % (1.0-4.0); HEMATOCRIT 45.3 % (42.0-52.0); LYMPH # 2.7 10*3/uL (1.3-4.4); MEAN CELL VOLUME 85.8 fl (80.0-94.0); MEAN CORPUSCULAR HGB 28.4 pg (27.0-31.0); MEAN CORPUSCULAR HGB CONC 33.1 g/dl (33.0-37.0); MONO # 0.8 10*3/uL (0.1-1.0); NEUT # 4.8 10*3/uL (2.3-7.9); NEUT % 54.6 % (47.0-73.0); PLATELET COUNT AUTOMATED 316 10*3/uL (130-400); RED BLOOD COUNT 5.28 10*6/uL (4.50-5.90); RED CELL DISTRI WIDTH 15.2 % (0-14.5); WHITE BLOOD COUNT 8.7 10*3/uL (4.8-10.8)
[2017-08-11 15:27] LABS: INTERNATIONAL NORM RATIO 1.4 (2.0-3.5)
[2017-08-11 15:28] LABS: ALBUMIN 3.7 gm/dl (3.1-4.5); ALKALINE PHOSPHATASE 96 U/L (45-117); BUN 14 mg/dl (7-24); CHLORIDE 102 mmol/L (98-107); CHOLESTEROL 169 mg/dL (<200); CREATININE 0.78 mg/dL (0.70-1.30); SGOT/AST 27 IU/L (3-35); SGPT/ALT 37 U/L (12-78); SODIUM 136 mmol/L (136-145); TRIGLYCERIDES 191 mg/dl (<150); VLDL CHOLESTEROL 38 mg/dL (6-40)
[2017-08-11 15:30] LABS: HDL CHOLESTEROL 35 mg/dl (40-60); LDL CHOLESTEROL 96 mg/dL (9-159); TOTAL PROTEIN 7.8 gm/dL (6.4-8.2)
== END | disposition home or self-care (01) ==
LOC: LAB 14:35
PROVIDERS: Internal Medicine
DX: E78.2 Mixed hyperlipidemia (principal); R53.81 Other malaise; E11.9 Type 2 diabetes mellitus without complications; E87.6 Hypokalemia; Z79.01 Long term (current) use of anticoagulants

== ENCOUNTER → 2017-09-15 | Outpatient (CLI) | payer OTHER ==
[2017-09-15 10:42] LABS: INTERNATIONAL NORM RATIO 1.6 (2.0-3.5)
== END | disposition home or self-care (01) ==
LOC: LAB 09:19
PROVIDERS: Internal Medicine
DX: I48.91 Unspecified atrial fibrillation (principal); Z79.01 Long term (current) use of anticoagulants

== ENCOUNTER → 2017-09-23 | Outpatient (CLI) | payer OTHER | END | disposition home or self-care (01) | LOC: RESCLI 01:55 | DX: E11.40 Type 2 diabetes mellitus with diabetic neuropathy, unspecified (principal); I48.91 Unspecified atrial fibrillation; I10 Essential (primary) hypertension; I25.10 Atherosclerotic heart disease of native coronary artery without angina pectoris; M06.9 Rheumatoid arthritis, unspecified; R09.81 Nasal congestion; E66.01 Morbid (severe) obesity due to excess calories; Z79.4 Long term (current) use of insulin; Z87.891 Personal history of nicotine dependence ==

== ENCOUNTER → 2017-12-17 | Outpatient (CLI) | payer OTHER | END | disposition home or self-care (01) | LOC: RESCLI 02:14 | DX: E78.5 Hyperlipidemia, unspecified (principal); E55.9 Vitamin D deficiency, unspecified; I10 Essential (primary) hypertension; E11.65 Type 2 diabetes mellitus with hyperglycemia; E11.40 Type 2 diabetes mellitus with diabetic neuropathy, unspecified; I25.10 Atherosclerotic heart disease of native coronary artery without angina pectoris; I48.91 Unspecified atrial fibrillation; E66.01 Morbid (severe) obesity due to excess calories; M06.9 Rheumatoid arthritis, unspecified; Z79.899 Other long term (current) drug therapy; Z88.8 Allergy status to other drugs, medicaments and biological substances; Z87.891 Personal history of nicotine dependence; Z79.4 Long term (current) use of insulin ==

== ENCOUNTER → 2017-12-19 | Outpatient (CLI) | payer OTHER ==
[2017-12-19 08:08] LABS: CHOLESTEROL 161 mg/dL (<200); HDL CHOLESTEROL 27 mg/dl (40-60); LDL CHOLESTEROL 80 mg/dL (9-159); TRIGLYCERIDES 271 mg/dl (<150); VLDL CHOLESTEROL 54 mg/dL (6-40)
== END | disposition home or self-care (01) ==
LOC: LAB 07:13
PROVIDERS: Internal Medicine
DX: E78.5 Hyperlipidemia, unspecified (principal); E11.40 Type 2 diabetes mellitus with diabetic neuropathy, unspecified; E55.9 Vitamin D deficiency, unspecified

== ENCOUNTER → 2018-02-05 | Outpatient (CLI) | payer OTHER ==
[2018-02-05 16:18] LABS: INTERNATIONAL NORM RATIO 1.7 (2.0-3.5)
== END | disposition home or self-care (01) ==
LOC: RESCLI 03:39
PROVIDERS: Internal Medicine
DX: Z00.01 Encounter for general adult medical examination with abnormal findings (principal); E55.9 Vitamin D deficiency, unspecified; E78.5 Hyperlipidemia, unspecified; E11.40 Type 2 diabetes mellitus with diabetic neuropathy, unspecified; I48.91 Unspecified atrial fibrillation; M06.9 Rheumatoid arthritis, unspecified; I25.10 Atherosclerotic heart disease of native coronary artery without angina pectoris; R09.81 Nasal congestion; Z79.4 Long term (current) use of insulin; Z79.899 Other long term (current) drug therapy; Z79.82 Long term (current) use of aspirin; Z87.891 Personal history of nicotine dependence; Z88.8 Allergy status to other drugs, medicaments and biological substances

== ENCOUNTER → 2018-03-18 | Outpatient (CLI) | payer OTHER | END | disposition home or self-care (01) | LOC: RESCLI 04:23 | DX: I25.10 Atherosclerotic heart disease of native coronary artery without angina pectoris (principal); E55.9 Vitamin D deficiency, unspecified; E78.5 Hyperlipidemia, unspecified; E11.40 Type 2 diabetes mellitus with diabetic neuropathy, unspecified; I48.91 Unspecified atrial fibrillation; I10 Essential (primary) hypertension; M06.9 Rheumatoid arthritis, unspecified; G47.30 Sleep apnea, unspecified; Z79.4 Long term (current) use of insulin ==

== ENCOUNTER → 2018-04-14 | Outpatient (CLI) | payer OTHER ==
[2018-04-14 16:32] LABS: INTERNATIONAL NORM RATIO 1.3 (2.0-3.5)
== END | disposition home or self-care (01) ==
LOC: RESCLI 00:48
PROVIDERS: Internal Medicine
DX: Z00.01 Encounter for general adult medical examination with abnormal findings (principal); E78.5 Hyperlipidemia, unspecified; E55.9 Vitamin D deficiency, unspecified; E66.01 Morbid (severe) obesity due to excess calories; I48.91 Unspecified atrial fibrillation; I10 Essential (primary) hypertension; M06.9 Rheumatoid arthritis, unspecified; I25.10 Atherosclerotic heart disease of native coronary artery without angina pectoris; B34.9 Viral infection, unspecified; E11.40 Type 2 diabetes mellitus with diabetic neuropathy, unspecified; Z79.899 Other long term (current) drug therapy; Z88.8 Allergy status to other drugs, medicaments and biological substances; Z79.01 Long term (current) use of anticoagulants

== ENCOUNTER → 2018-04-21 | Outpatient (CLI) | payer OTHER ==
[2018-04-21 16:19] LABS: INTERNATIONAL NORM RATIO 1.5 (2.0-3.5)
== END | disposition home or self-care (01) ==
LOC: RESCLI 04:21
PROVIDERS: Family Medicine
DX: E78.5 Hyperlipidemia, unspecified (principal); E55.9 Vitamin D deficiency, unspecified; E66.01 Morbid (severe) obesity due to excess calories; I48.91 Unspecified atrial fibrillation; I10 Essential (primary) hypertension; I25.10 Atherosclerotic heart disease of native coronary artery without angina pectoris; E11.40 Type 2 diabetes mellitus with diabetic neuropathy, unspecified; Z79.01 Long term (current) use of anticoagulants; Z79.899 Other long term (current) drug therapy; Z87.891 Personal history of nicotine dependence; Z88.8 Allergy status to other drugs, medicaments and biological substances

== ENCOUNTER → 2018-05-05 | Outpatient (CLI) | payer OTHER ==
[2018-05-05 11:29] LABS: INTERNATIONAL NORM RATIO 1.6 (2.0-3.5)
== END | disposition home or self-care (01) ==
LOC: RESCLI 10:16
PROVIDERS: Family Medicine
DX: Z01.89 Encounter for other specified special examinations (principal); I48.91 Unspecified atrial fibrillation; E66.09 Other obesity due to excess calories; F17.210 Nicotine dependence, cigarettes, uncomplicated; Z79.01 Long term (current) use of anticoagulants

== ENCOUNTER → 2018-06-03 | Outpatient (CLI) | payer OTHER ==
[~2018-06-03] MED LIST changes: +PROTONIX40 MG PO
[2018-06-03 17:06] LABS: INTERNATIONAL NORM RATIO 1.7 (2.0-3.5)
== END | disposition home or self-care (01) ==
LOC: RESCLI 01:34
PROVIDERS: Internal Medicine
DX: I48.91 Unspecified atrial fibrillation (principal); I10 Essential (primary) hypertension; E11.40 Type 2 diabetes mellitus with diabetic neuropathy, unspecified; I25.10 Atherosclerotic heart disease of native coronary artery without angina pectoris; E55.9 Vitamin D deficiency, unspecified; E78.5 Hyperlipidemia, unspecified; J30.2 Other seasonal allergic rhinitis; M06.9 Rheumatoid arthritis, unspecified; R79.1 Abnormal coagulation profile; Z79.899 Other long term (current) drug therapy; Z79.4 Long term (current) use of insulin; Z79.82 Long term (current) use of aspirin; Z79.01 Long term (current) use of anticoagulants; Z87.891 Personal history of nicotine dependence

== ENCOUNTER → 2018-06-17 | Outpatient (CLI) | payer OTHER ==
[~2018-06-17] MED LIST changes: -PROTONIX40 MG PO
[2018-06-17 16:12] LABS: INTERNATIONAL NORM RATIO 1.4 (2.0-3.5)
== END | disposition home or self-care (01) ==
LOC: LAB 15:45
PROVIDERS: Internal Medicine Nephrology
DX: I48.91 Unspecified atrial fibrillation (principal)

== ENCOUNTER → 2018-06-24 | Outpatient (CLI) | payer OTHER ==
[2018-06-24 16:43] LABS: BASO # 0.1 10*3/uL (0.0-0.1); BASO % 0.8 % (0.0-1.0); EOS # 0.4 10*3/uL (0.0-0.4); EOS % 4.8 % (1.0-4.0); HEMATOCRIT 44.6 % (42.0-52.0); HEMOGLOBIN 14.4 g/dl (14.0-18.0); LYMPH % 34.6 % (27.0-41.0); MEAN CELL VOLUME 88.1 fl (80.0-94.0); MEAN CORPUSCULAR HGB 28.5 pg (27.0-31.0); MEAN CORPUSCULAR HGB CONC 32.3 g/dl (33.0-37.0); MEAN PLATELET VOLUME 9.4 fl (9.6-12.3); MONO % 11.9 % (3.0-9.0); NEUT # 4.1 10*3/uL (2.3-7.9); NEUT % 47.7 % (47.0-73.0); PLATELET COUNT AUTOMATED 298 10*3/uL (130-400); RED BLOOD COUNT 5.06 10*6/uL (4.50-5.90); RED CELL DISTRI WIDTH 14.9 % (0-14.5); WHITE BLOOD COUNT 8.6 10*3/uL (4.8-10.8)
[2018-06-24 17:14] LABS: ALBUMIN 3.6 gm/dl (3.1-4.5); ALKALINE PHOSPHATASE 82 U/L (45-117); BUN 19 mg/dl (7-24); CHLORIDE 102 mmol/L (98-107); CHOLESTEROL 125 mg/dL (<200); CREATININE 0.96 mg/dL (0.70-1.30); HDL CHOLESTEROL 33 mg/dl (40-60); LDL CHOLESTEROL 54 mg/dL (9-159); SGOT/AST 41 IU/L (3-35); SGPT/ALT 42 U/L (12-78); SODIUM 136 mmol/L (136-145); TRIGLYCERIDES 188 mg/dl (<150); VLDL CHOLESTEROL 38 mg/dL (6-40)
[2018-06-24 17:22] LABS: INTERNATIONAL NORM RATIO 1.7 (2.0-3.5)
[2018-06-24 18:01] LABS: VITAMIN D, 25-HYDROXY 22.8 ng/mL (30-100)
== END | disposition home or self-care (01) ==
LOC: RESCLI 00:26
PROVIDERS: Internal Medicine
DX: E78.5 Hyperlipidemia, unspecified (principal); E55.9 Vitamin D deficiency, unspecified; E11.40 Type 2 diabetes mellitus with diabetic neuropathy, unspecified; M06.9 Rheumatoid arthritis, unspecified; I25.10 Atherosclerotic heart disease of native coronary artery without angina pectoris; I10 Essential (primary) hypertension; I48.91 Unspecified atrial fibrillation; E66.01 Morbid (severe) obesity due to excess calories; R94.5 Abnormal results of liver function studies; R80.9 Proteinuria, unspecified; Z79.899 Other long term (current) drug therapy; Z79.82 Long term (current) use of aspirin; Z87.891 Personal history of nicotine dependence; Z88.8 Allergy status to other drugs, medicaments and biological substances

== ENCOUNTER → 2018-06-29 | Outpatient (CLI) | payer OTHER ==
[~2018-06-29] MED LIST changes: +PROTONIX40 MG PO
[2018-06-29 16:15] LABS: INTERNATIONAL NORM RATIO 1.7 (2.0-3.5)
[2018-06-30 11:07] LABS: HEPATITIS B SURFACE AB 006395 Non Reactive (.); HEPATITIS B SURFACE AG Negative (Negative); HEPATITIS Be ANTIGEN 006619 Negative (Negative)
== END | disposition home or self-care (01) ==
LOC: LAB 15:31
PROVIDERS: Internal Medicine
DX: R79.1 Abnormal coagulation profile (principal); R94.5 Abnormal results of liver function studies

== ENCOUNTER → 2018-07-07 | Outpatient (CLI) | payer OTHER ==
[2018-07-07 15:45] LABS: INTERNATIONAL NORM RATIO 2.9 (2.0-3.5)
== END | disposition home or self-care (01) ==
LOC: LAB 15:20
PROVIDERS: Internal Medicine
DX: I48.91 Unspecified atrial fibrillation (principal)

== ENCOUNTER → 2018-07-13 | Outpatient (CLI) | payer OTHER | END | disposition home or self-care (01) | LOC: LAB 09:37 | PROVIDERS: Internal Medicine | DX: I48.91 Unspecified atrial fibrillation (principal) ==

== ENCOUNTER → 2018-10-23 | Outpatient (CLI) | payer MEDICARE ==
[2018-10-23 11:33] LABS: BILIRUBIN NEGATIVE (NEGATIVE); BLOOD TRACE-INTACT (NEGATIVE); CLARITY CLEAR (CLEAR); COLOR STRAW (YELLOW); GLUCOSE 3+ (NEGATIVE); KETONE NEGATIVE (NEGATIVE); LEUKO ESTERASE NEGATIVE (NEGATIVE); NITRITE NEGATIVE (NEGATIVE); SPECIFIC GRAVITY <= 1.005 (1.005-1.030); UROBILINOGEN 0.2 E.U./dl (0.2-1.0)
[2018-10-23 11:39] LABS: BASO # 0.1 10*3/uL (0.0-0.1); BASO % 0.9 % (0.0-1.0); EOS # 0.4 10*3/uL (0.0-0.4); EOS % 3.8 % (1.0-4.0); HEMOGLOBIN 11.7 g/dl (14.0-18.0); LYMPH # 2.4 10*3/uL (1.3-4.4); MEAN CORPUSCULAR HGB 27.2 pg (27.0-31.0); MEAN CORPUSCULAR HGB CONC 31.6 g/dl (33.0-37.0); MEAN PLATELET VOLUME 9.9 fl (9.6-12.3); MONO # 0.9 10*3/uL (0.1-1.0); MONO % 9.4 % (3.0-9.0); NEUT # 5.5 10*3/uL (2.3-7.9); NEUT % 59.7 % (47.0-73.0); PLATELET COUNT AUTOMATED 359 10*3/uL (130-400); RED CELL DISTRI WIDTH 15.3 % (0-14.5); WHITE BLOOD COUNT 9.1 10*3/uL (4.8-10.8)
[2018-10-23 11:55] LABS: ALBUMIN 3.3 gm/dl (3.1-4.5); CREATININE 1.44 mg/dL (0.70-1.30); PHOSPHOROUS 3.1 mg/dL (2.5-4.9); POTASSIUM 4.6 mmol/L (3.5-5.1)
== END | disposition home or self-care (01) ==
LOC: LAB 10:55
PROVIDERS: Internal Medicine Nephrology
DX: N17.9 Acute kidney failure, unspecified (principal); D50.0 Iron deficiency anemia secondary to blood loss (chronic)

== ENCOUNTER → 2018-12-09 | Day surgery (SDC) | payer MEDICARE ==
[~2018-12-09] VITALS: Ht 170.1 cm; Wt 113.4 kg
--- NOTE | ~2018-12-09 | O ---
[place], [place] OPERATIVE NOTE NAME: RAFI FOSTER UNIT #: [id number] ROOM: DOCTOR: SAURAV HIGGINS MD BIRTHDATE: [birth year] DOS: 12/09/2018 GASTROENDOSCOPIC REPORT HISTORY OF PRESENT ILLNESS: This is a 63-year-old patient who presented with dyspepsia, history of peptic ulcer disease, history of previous GI bleed, undergoing investigation. The patient has been on Plavix, has stopped intake of his PPI therapy. PAST MEDICAL HISTORY: Atrial fibrillation, diabetes mellitus, coronary artery disease, hypertension. PAST SURGICAL HISTORY: Cardiac stents and right knee. ALLERGIES: No known medication. SOCIAL HISTORY: Nonsmoker, nonalcohol consumer. PROCEDURE: Today's procedure part of investigation is panendoscopy plus biopsy. PREMEDICATION: Propofol. SCOPE: Olympus forward-viewing gastroscope Q10 video. REPORT: After putting the patient in left lateral position and application of lubricant to the scope, the scope was introduced. Thereafter, under direct visualization, advanced through the length of esophagus without difficulty. Distal esophagitis was noticed. Hiatal hernia was small was noticed. Gastritis of bile reflux type was photographed. Antral biopsy obtained. Duodenitis noticed. Air was suctioned out along the lesser curvature. GI reflexion of the scope reveals cardia to be benign. The patient tolerated the procedure well. IMPRESSION: Distal esophagitis, hiatal hernia, gastritis of bile reflux type duodenitis. PLAN AND DISCUSSION: This patient definitely benefit from chronic PPI therapy. Protonix 40 mg every day is going to be adopted and antireflux with elevation of the head of the bed 6-inch all time. FOLLOWUP: Routinely with you in office and GI clinic with us p.r.n. The patient previous site of GI bleed has healed and no active bleeding at this time noticed. He may require a colonoscopic follow up for screening. Workup in progress as outpatient. [place], [place] OPERATIVE NOTE NAME: RAFI FOSTER Jacque UNIT #: [id number] ROOM: DOCTOR: SAURAV HIGGINS MD BIRTHDATE: [birth year] SAURAV HIGGINS MD CM:OPRECORD:OPERATIVE NOTE [phone] SAURAV HIGGINS MD 12/09/18 1135 interface
[2018-12-09 09:06] VITALS: BP 125/50
[2018-12-09 09:21] VITALS: BP 138/58
[2018-12-09 09:36] VITALS: BP 158/72
== END | disposition home or self-care (01) ==
LOC: SDC 12-08 09:30
DX: K29.50 Unspecified chronic gastritis without bleeding (principal); K21.0 Gastro-esophageal reflux disease with esophagitis; K29.80 Duodenitis without bleeding; K44.9 Diaphragmatic hernia without obstruction or gangrene; K22.719 Barrett's esophagus with dysplasia, unspecified; I48.91 Unspecified atrial fibrillation; E11.9 Type 2 diabetes mellitus without complications; I25.10 Atherosclerotic heart disease of native coronary artery without angina pectoris; I10 Essential (primary) hypertension; E78.5 Hyperlipidemia, unspecified; E78.00 Pure hypercholesterolemia, unspecified; G47.30 Sleep apnea, unspecified; E66.9 Obesity, unspecified; Z68.39 Body mass index [BMI] 39.0-39.9, adult; I25.2 Old myocardial infarction; Z95.5 Presence of coronary angioplasty implant and graft; Z79.899 Other long term (current) drug therapy; Z98.890 Other specified postprocedural states; Z83.3 Family history of diabetes mellitus; Z82.49 Family history of ischemic heart disease and other diseases of the circulatory system; Z82.3 Family history of stroke

== ENCOUNTER → 2019-02-09 | Outpatient (CLI) | payer MEDICARE | END | disposition home or self-care (01) | LOC: US 11:35 | DX: R60.0 Localized edema (principal) ==

== ENCOUNTER → 2019-02-19 | Outpatient (CLI) | payer MEDICARE | END | disposition home or self-care (01) | LOC: RESCLI 00:25 | DX: M06.9 Rheumatoid arthritis, unspecified (principal); I48.91 Unspecified atrial fibrillation; I10 Essential (primary) hypertension; E11.40 Type 2 diabetes mellitus with diabetic neuropathy, unspecified; E78.5 Hyperlipidemia, unspecified; I25.10 Atherosclerotic heart disease of native coronary artery without angina pectoris; F32.2 Major depressive disorder, single episode, severe without psychotic features; E55.9 Vitamin D deficiency, unspecified; Z79.899 Other long term (current) drug therapy ==

== ENCOUNTER 2019-04-23 18:22 | Inpatient (IN) | payer MEDICARE ==
[~2019-04-23] VITALS: Ht 170.1 cm; Wt 126.2 kg
[2019-04-23 18:23] VITALS: BP 216/77
[2019-04-23 18:33] VITALS: BP 178/80
[2019-04-23 18:36] LABS: BASO # 0.1 10*3/uL (0.0-0.1); BASO % 0.6 % (0.0-1.0); EOS # 0.4 10*3/uL (0.0-0.4); EOS % 3.5 % (1.0-4.0); HEMATOCRIT 40.6 % (42.0-52.0); HEMOGLOBIN 12.5 g/dl (14.0-18.0); LYMPH # 2.7 10*3/uL (1.3-4.4); LYMPH % 26.6 % (27.0-41.0); MEAN CORPUSCULAR HGB 26.5 pg (27.0-31.0); MEAN CORPUSCULAR HGB CONC 30.8 g/dl (33.0-37.0); MEAN PLATELET VOLUME 9.2 fl (9.6-12.3); MONO % 9.3 % (3.0-9.0); NEUT # 6.1 10*3/uL (2.3-7.9); NEUT % 59.7 % (47.0-73.0); PLATELET COUNT AUTOMATED 301 10*3/uL (130-400); RED BLOOD COUNT 4.72 10*6/uL (4.50-5.90); RED CELL DISTRI WIDTH 15.2 % (0-14.5); WHITE BLOOD COUNT 10.3 10*3/uL (4.8-10.8)
[2019-04-23 18:46] LABS: ACT PARTIAL THROMBO TIME 28.5 SECONDS (20.0-32.1)
[2019-04-23 18:52] LABS: ALBUMIN 3.3 gm/dl (3.1-4.5); ALKALINE PHOSPHATASE 116 U/L (45-117); BUN 19 mg/dl (7-24); CHLORIDE 108 mmol/L (98-107); POTASSIUM 4.2 mmol/L (3.5-5.1); SGOT/AST 34 IU/L (3-35); SGPT/ALT 32 U/L (12-78); SODIUM 140 mmol/L (136-145)
[2019-04-23 18:56] LABS: TROPONIN I 0.059 ng/ml (<0.045)
--- NOTE | 2019-04-23 18:56 | NUR ---
CRITICAL LAB TROPONIN 0.059, NOTIFIED.
[2019-04-23 21:00] VITALS: BP 154/82
[2019-04-23 21:15] VITALS: BP 154/60
--- NOTE | 2019-04-23 21:15 | NUR ---
A 63, admitted to , under the services of FRANCESCA Mantilla DO with a diagnosis of HEART FAILURE. Chief complaint is HEART FAILURE. Patient arrived via stretcher from ER. Monitor applied. Initial assessment completed. Vital signs taken and recorded. FRANCESCA MANTILLA DO notified of admission to the unit. Orders received. See assessment for past medical history, medications and allergies. Patient and/or family oriented to unit. [address] visitation policy reviewed. Clothing/patient valuable form completed. MICH ANNA
--- NOTE | 2019-04-23 22:55 | NUR ---
NOTIFIED OF CRITICAL TROPONIN OF 0.057. WILL NOTIFY DOCTOR.
--- NOTE | 2019-04-23 22:56 | NUR ---
NOTIFIED RESIDENT, DR ZAYAS, OF CRITICAL TROPONIN RESULT OF 0.057. NO ORDERS RECIEVED AT THIS TIME.
[2019-04-23] MEDS ORDERED: GLUCOTROL10 MG PO (23:10)
[2019-04-23] MEDS ORDERED: LABETALOL HCL200 MG PO (23:40)
--- NOTE | 2019-04-23 23:58 | NUR ---
MED REC UPDATED WITH CURRENT INFORMATION GIVEN. WILL PASS ALONG THE NEED TO CALL DOWN TO PHARMACY HERE AT THE HOSPITAL TOMORROW TO VERIFY ALL OF PATIENT'S HOME MEDS.
[2019-04-24] VITALS: BP 170/82
--- NOTE | 2019-04-24 00:31 | NUR ---
SPOKE WITH DR TRIANA ABOUT PATIENT'S MEDS. PATIENT IS REQUESTING NEURONTIN. ORDERS RECIEVED FROM DR TRIANA TO PUT IN THE ORDER FOR NEURONTIN.
--- NOTE | 2019-04-24 00:40 | NUR ---
DR TRIANA NOTIFIED OF TROPONIN 0.065. NO ORDERS RECIEVED AT THIS TIME.
--- NOTE | 2019-04-24 00:40 | NUR ---
CRITICAL LAB RECEIVED. TROPONIN 0.065.
--- NOTE | 2019-04-24 01:28 | NUR ---
PATIENT STATED HE WEARS CPAP AT NIGHT ON SETTING 18. DR TRIANA NOTIFIED AND ORDERS RECIEVED TO PUT THE ORDER IN FOR IT.
--- NOTE | 2019-04-24 04:59 | NUR ---
LEFT A MESSAGE WITH DR EHSS'S/HARSHAL'S ANSWERING SERVICE REGARDING PATIENT'S CONSULT. THEY STATED THEY WOULD HAVE A CALL BACK IN THE MORNING.
[2019-04-24 07:08] LABS: BASO # 0.1 10*3/uL (0.0-0.1); BASO % 0.7 % (0.0-1.0); EOS # 0.4 10*3/uL (0.0-0.4); HEMATOCRIT 38.6 % (42.0-52.0); LYMPH # 2.5 10*3/uL (1.3-4.4); MEAN CELL VOLUME 83.7 fl (80.0-94.0); MEAN CORPUSCULAR HGB CONC 31.1 g/dl (33.0-37.0); MEAN PLATELET VOLUME 9.5 fl (9.6-12.3); MONO % 9.4 % (3.0-9.0); NEUT # 6.8 10*3/uL (2.3-7.9); NEUT % 62.6 % (47.0-73.0); PLATELET COUNT AUTOMATED 317 10*3/uL (130-400); RED BLOOD COUNT 4.61 10*6/uL (4.50-5.90); RED CELL DISTRI WIDTH 15.2 % (0-14.5); WHITE BLOOD COUNT 10.8 10*3/uL (4.8-10.8)
[2019-04-24 07:36] LABS: ALBUMIN 3.2 gm/dl (3.1-4.5); BUN 18 mg/dl (7-24); CHLORIDE 106 mmol/L (98-107); CHOLESTEROL 108 mg/dL (<200); POTASSIUM 3.8 mmol/L (3.5-5.1); SGPT/ALT 27 U/L (12-78); SODIUM 140 mmol/L (136-145)
[2019-04-24 07:43] LABS: ALKALINE PHOSPHATASE 96 U/L (45-117); CREATININE 1.26 mg/dL (0.70-1.30); FREE T4 1.12 ng/dl (0.76-1.46); HDL CHOLESTEROL 32 mg/dl (40-60); LDL CHOLESTEROL 49 mg/dL (9-159); PHOSPHOROUS 3.1 mg/dL (2.5-4.9); SGOT/AST 29 IU/L (3-35); TOTAL PROTEIN 7.8 gm/dL (6.4-8.2); TRIGLYCERIDES 134 mg/dl (<150); VLDL CHOLESTEROL 27 mg/dL (6-40)
[2019-04-24] MEDS ORDERED: HUMALOG100 UNIT/2 SQ (10:55)
[2019-04-24] MEDS ORDERED: LANTUS SOL100 UNIT/1 SC (10:55)
[2019-04-24] MEDS ORDERED: PROTONIX40 MG PO (11:27)
[2019-04-24] MEDS ORDERED: NORVASC5 MG PO (11:28)
[2019-04-24 12:00] VITALS: BP 183/78
[2019-04-24 16:00] VITALS: BP 172/66
[2019-04-24 20:00] VITALS: BP 191/71
[2019-04-25] VITALS: BP 169/62
[2019-04-25 08:00] VITALS: BP 170/84
[2019-04-25 10:59] VITALS: BP 150/70
--- NOTE | 2019-04-25 10:59 | NUR ---
DR MEYER NOTIFIED OF BS. STATED TO GIVE INSULIN PER SLIDING SCALE.
[2019-04-25 12:00] VITALS: BP 155/57
[2019-04-25 16:00] VITALS: BP 124/64
--- NOTE | 2019-04-25 19:46 | NUR ---
ASSUMED CARE OF PT. PT AWAKE IN BED. RESPIRATIONS EASY. NO S/S OF DISTRESS NOTED. WILL MONITOR. CALL LIGHT IN REACH.
[2019-04-25 20:00] VITALS: BP 147/53
[2019-04-26] VITALS: BP 152/60
--- NOTE | 2019-04-26 04:03 | NUR ---
PT ASLEEP IN BED. CPAP FROM HOME IN USE. NO S/S OF DISTRESS NOTED. WILL MONITOR. CALL LIGHT IN REACH.
[2019-04-26 07:23] LABS: BUN 24 mg/dl (7-24); CHLORIDE 102 mmol/L (98-107); CREATININE 1.29 mg/dL (0.70-1.30); POTASSIUM 3.8 mmol/L (3.5-5.1); SODIUM 136 mmol/L (136-145)
[2019-04-26 08:01] VITALS: BP 138/64
--- NOTE | 2019-04-26 09:00 | NUR ---
Community Health Advisor in to talk to patient. Patient states lives at home with his . There are 0 steps in the home. There is a wheelchair ramp. Physician: resident clinic Pharmacy: [facility] Home health services: none Patient's level of ADLs: INDEPENDENT Patient has working utilities: yes DME: c-pap Follow-up physician's appointment after d/c: will be made by the hospitalist nurse director upon discharge Does patient want to access PORTAL?: no Discharge plan discussed with patient. He lives at home with his . He is independent in his ADLs and ambulation. Discussed home health care services and he denies any home needs at this time. He states he goes to the [facility] 3 days a week. His son will provide transportation on discharge. Chest x-ray shows pulmonary vascular congestion, right pleural effusion, lasix bid, cardio consult. He states he also see Dr. Munoz. He would like a dietary consult. Hospitalist nurse director notified. DONELL MILLER
--- NOTE | 2019-04-26 09:41 | NUR ---
INFORMED SIGNED CONSENT OBTAINED FOR LEXISCAN STRESS TEST WITH DR FELIX. RESTING EKG NSR HR 60 BP 136/72. PULSE OX 91% LUNGS CLEARLY DIMINISHED. PT COMPLETED ONE MINUTE OF A LEXISCAN PROTOCOL WITH PT RECEIVING LEXISCAN 0.4MG IV OVER 10 SECONDS. NO ARRHYTHMIAS OR ST CHANGES NOTED. PT C/O SOB AND NAUSEA WITH INJECTION. LAST RECOVERY HR OF 71 BP 124/64. PT IN STABLE CONDITION, AWAITING NUCLEAR IMAGES.
[2019-04-26 12:00] VITALS: BP 180/62
--- NOTE | 2019-04-26 14:29 | NUR ---
Nutritional Support Services Note: Discussing with pt cardiac diet. Diet copy given to pt. Also discussing diabetic diet. Encouraged healthy eating. Three meals daily and a night snack. Encouraged proper portion sizes and weight loss. Will follow as needed. Celina Mota Rdn Ld
[2019-04-26 16:00] VITALS: BP 143/56
--- NOTE | 2019-04-26 19:42 | NUR ---
PT AWAKE IN BED. BOXED LUNCH PROVIDED PER REQUEST PT STATES HIS DINNER WAS NOT GOOD, SO HE DID NOT EAT. PT SATISFIED WITH BOXED LUNCH AT THIS TIME. DENIES ANY OTHER NEEDS. WILL MONITOR. CALL LIGHT IN REACH.
[2019-04-26 20:00] VITALS: BP 153/68
[2019-04-27] VITALS: BP 131/52
[2019-04-27 06:20] LABS: BASO # 0.1 10*3/uL (0.0-0.1); BASO % 0.6 % (0.0-1.0); EOS # 0.4 10*3/uL (0.0-0.4); EOS % 5.1 % (1.0-4.0); HEMATOCRIT 39.8 % (42.0-52.0); HEMOGLOBIN 12.2 g/dl (14.0-18.0); LYMPH # 2.5 10*3/uL (1.3-4.4); LYMPH % 29.6 % (27.0-41.0); MEAN CELL VOLUME 83.6 fl (80.0-94.0); MEAN CORPUSCULAR HGB 25.6 pg (27.0-31.0); MEAN CORPUSCULAR HGB CONC 30.7 g/dl (33.0-37.0); MEAN PLATELET VOLUME 9.1 fl (9.6-12.3); MONO % 11.8 % (3.0-9.0); NEUT # 4.5 10*3/uL (2.3-7.9); NEUT % 52.8 % (47.0-73.0); PLATELET COUNT AUTOMATED 309 10*3/uL (130-400); RED BLOOD COUNT 4.76 10*6/uL (4.50-5.90); RED CELL DISTRI WIDTH 14.6 % (0-14.5); WHITE BLOOD COUNT 8.5 10*3/uL (4.8-10.8)
[2019-04-27 06:32] LABS: BUN 24 mg/dl (7-24); CHLORIDE 103 mmol/L (98-107); CREATININE 1.33 mg/dL (0.70-1.30); POTASSIUM 3.9 mmol/L (3.5-5.1); SODIUM 137 mmol/L (136-145)
[2019-04-27 12:00] VITALS: BP 140/50
[2019-04-27] MEDS ORDERED: FUROSEMIDE40 MG PO (12:39)
[2019-04-27] MEDS ORDERED: AMLODIPINE BESYL5 MG PO (12:39)
[2019-04-27] MEDS ORDERED: ASPIRIN ADULT L81 M2 PO (12:39)
[2019-04-27] MEDS ORDERED: HUMALOG100 UNIT/2 SQ (14:07)
--- NOTE | 2019-04-27 14:20 | NUR ---
Discharge instructions reviewed with patient/family. Patient receptive and verbalizes understanding. Follow-up care arranged. Written instructions given to patient/family. Patient was educated on new prescriptions and to follow up with physicians. Patient ambulated from unit with son and all personal belongings accounted for. BRISA MADSEN
== END 2019-04-27 14:20 | disposition home or self-care (01) | DRG 304 ==
LOC: ED 18:22 → 4E 20:26 → EDHOLD 20:26 → 4E 20:47
PROVIDERS: Emergency Medicine; Internal Medicine; ADMIT Internal Medicine
PROC: 3E073KZ Introduction of Other Diagnostic Substance into Coronary Artery, Percutaneous Approach (ICD-10-PCS; principal; 2019-04-26)
PROC: 4A02XM4 Measurement of Cardiac Total Activity, External Approach (ICD-10-PCS; principal; 2019-04-26)
PROC: 5A09357 Assistance with Respiratory Ventilation, Less than 24 Consecutive Hours, Continuous Positive Airway Pressure (ICD-10-PCS; 2019-04-27)
DX: I16.1 Hypertensive emergency (principal); I50.33 Acute on chronic diastolic (congestive) heart failure; Z68.41 Body mass index [BMI] 40.0-44.9, adult; I11.0 Hypertensive heart disease with heart failure; E83.41 Hypermagnesemia; D64.9 Anemia, unspecified; E11.65 Type 2 diabetes mellitus with hyperglycemia; I25.10 Atherosclerotic heart disease of native coronary artery without angina pectoris; E11.51 Type 2 diabetes mellitus with diabetic peripheral angiopathy without gangrene; F32.9 Major depressive disorder, single episode, unspecified; I48.0 Paroxysmal atrial fibrillation; E78.5 Hyperlipidemia, unspecified; G47.33 Obstructive sleep apnea (adult) (pediatric); E66.01 Morbid (severe) obesity due to excess calories; M06.9 Rheumatoid arthritis, unspecified; Z88.1 Allergy status to other antibiotic agents; Z79.84 Long term (current) use of oral hypoglycemic drugs; Z82.49 Family history of ischemic heart disease and other diseases of the circulatory system; Z79.4 Long term (current) use of insulin; I25.2 Old myocardial infarction; Z79.899 Other long term (current) drug therapy; Z83.3 Family history of diabetes mellitus; Z82.3 Family history of stroke

== ENCOUNTER → 2019-05-13 | Outpatient (CLI) | payer MEDICARE ==
[~2019-05-13] MED LIST changes: +AMLODIPINE BESYL5 MG PO; +ASPIRIN ADULT L81 M2 PO; +FUROSEMIDE40 MG PO; +GLUCOTROL10 MG PO; +HUMALOG100 UNIT/2 SQ; +LABETALOL HCL200 MG PO; +LANTUS SOL100 UNIT/1 SC
[2019-05-13 10:04] LABS: CHLORIDE 109 mmol/L (98-107); POTASSIUM 4.3 mmol/L (3.5-5.1); SODIUM 140 mmol/L (136-145)
[2019-05-13 10:08] LABS: BUN 31 mg/dl (7-24)
== END | disposition home or self-care (01) ==
LOC: LAB 09:10
PROVIDERS: Internal Medicine Cardiovascular Disease
DX: I48.0 Paroxysmal atrial fibrillation (principal); I11.0 Hypertensive heart disease with heart failure; I50.9 Heart failure, unspecified; I25.10 Atherosclerotic heart disease of native coronary artery without angina pectoris; Z79.899 Other long term (current) drug therapy

== ENCOUNTER → 2019-05-25 | Outpatient (CLI) | payer MEDICARE, OTHER ==
[2019-05-25 10:17] LABS: CHLORIDE 109 mmol/L (98-107); POTASSIUM 4.7 mmol/L (3.5-5.1); SODIUM 140 mmol/L (136-145)
[2019-05-25 10:21] LABS: BUN 28 mg/dl (7-24); CREATININE 1.43 mg/dL (0.70-1.30)
== END | disposition home or self-care (01) ==
LOC: LAB 09:13
PROVIDERS: Internal Medicine Cardiovascular Disease
DX: I25.10 Atherosclerotic heart disease of native coronary artery without angina pectoris (principal); I11.0 Hypertensive heart disease with heart failure; I50.31 Acute diastolic (congestive) heart failure

== ENCOUNTER → 2019-06-28 | Outpatient (CLI) | payer MEDICARE, OTHER ==
[2019-06-28 11:21] LABS: URINE CREATININE RANDOM 27.5 mg/dL
[2019-06-28 11:22] LABS: BASO # 0.1 10*3/uL (0.0-0.1); BASO % 0.6 % (0.0-1.0); EOS # 0.4 10*3/uL (0.0-0.4); EOS % 3.8 % (1.0-4.0); HEMATOCRIT 39.4 % (42.0-52.0); HEMOGLOBIN 11.9 g/dl (14.0-18.0); LYMPH # 2.1 10*3/uL (1.3-4.4); LYMPH % 22.2 % (27.0-41.0); MEAN CELL VOLUME 83.7 fl (80.0-94.0); MEAN CORPUSCULAR HGB 25.3 pg (27.0-31.0); MEAN CORPUSCULAR HGB CONC 30.2 g/dl (33.0-37.0); MONO % 10.2 % (3.0-9.0); NEUT # 5.8 10*3/uL (2.3-7.9); NEUT % 62.8 % (47.0-73.0); PLATELET COUNT AUTOMATED 285 10*3/uL (130-400); RED BLOOD COUNT 4.71 10*6/uL (4.50-5.90); RED CELL DISTRI WIDTH 15.5 % (0-14.5); WHITE BLOOD COUNT 9.3 10*3/uL (4.8-10.8)
[2019-06-28 11:50] LABS: ALBUMIN 3.4 gm/dl (3.1-4.5); CREATININE 1.54 mg/dL (0.70-1.30); PHOSPHOROUS 3.4 mg/dL (2.5-4.9); POTASSIUM 4.2 mmol/L (3.5-5.1)
[2019-06-28 13:29] LABS: CLARITY SL CLOUDY (CLEAR); COLOR YELLOW (YELLOW)
[2019-06-28 13:30] LABS: BILIRUBIN NEGATIVE (NEGATIVE); BLOOD NEGATIVE (NEGATIVE); GLUCOSE NEGATIVE (NEGATIVE); KETONE NEGATIVE (NEGATIVE)
[2019-06-28 13:31] LABS: BACTERIA TRACE; LEUKO ESTERASE 1+ (NEGATIVE); NITRITE NEGATIVE (NEGATIVE); UROBILINOGEN 0.2 E.U./dl (0.2-1.0)
== END | disposition home or self-care (01) ==
LOC: LAB 10:48
PROVIDERS: Internal Medicine Nephrology
DX: N18.3 Chronic kidney disease, stage 3 (moderate) (principal); N17.9 Acute kidney failure, unspecified; D50.0 Iron deficiency anemia secondary to blood loss (chronic)

== ENCOUNTER → 2019-07-22 | Outpatient (CLI) | payer MEDICARE, OTHER | END | disposition home or self-care (01) | LOC: D 09:59 | DX: E11.29 Type 2 diabetes mellitus with other diabetic kidney complication (principal) ==

== ENCOUNTER → 2019-09-21 | Outpatient (CLI) | payer MEDICARE, OTHER ==
[2019-09-21 12:01] LABS: BASO # 0.1 10*3/uL (0.0-0.1); BASO % 0.8 % (0.0-1.0); EOS # 0.3 10*3/uL (0.0-0.4); EOS % 2.6 % (1.0-4.0); HEMATOCRIT 40.9 % (42.0-52.0); LYMPH # 2.5 10*3/uL (1.3-4.4); LYMPH % 24.3 % (27.0-41.0); MEAN CORPUSCULAR HGB 26.2 pg (27.0-31.0); MEAN CORPUSCULAR HGB CONC 32.8 g/dl (33.0-37.0); MEAN PLATELET VOLUME 9.3 fl (9.6-12.3); MONO # 0.9 10*3/uL (0.1-1.0); MONO % 8.3 % (3.0-9.0); NEUT # 6.6 10*3/uL (2.3-7.9); NEUT % 63.5 % (47.0-73.0); PLATELET COUNT AUTOMATED 351 10*3/uL (130-400); RED BLOOD COUNT 5.11 10*6/uL (4.50-5.90); RED CELL DISTRI WIDTH 17.2 % (0-14.5); WHITE BLOOD COUNT 10.4 10*3/uL (4.8-10.8)
[2019-09-21 12:11] LABS: URINE CREATININE RANDOM 63.6 mg/dL
[2019-09-21 12:28] LABS: BILIRUBIN NEGATIVE (NEGATIVE); CLARITY CLEAR (CLEAR); COLOR YELLOW (YELLOW); GLUCOSE 2+ (NEGATIVE)
[2019-09-21 12:29] LABS: ALBUMIN 3.2 gm/dl (3.1-4.5); CREATININE 1.44 mg/dL (0.70-1.30)
[2019-09-21 12:29] LABS: BLOOD NEGATIVE (NEGATIVE); KETONE TRACE (NEGATIVE); LEUKO ESTERASE NEGATIVE (NEGATIVE); NITRITE NEGATIVE (NEGATIVE); RBC 0-2 rbc/hpf (0-2); UROBILINOGEN 0.2 E.U./dl (0.2-1.0)
[2019-09-21 12:31] LABS: FREE T4 1.28 ng/dl (0.76-1.46)
[2019-09-21 12:37] LABS: THYROID STIM HORMONE (HS) 0.774 uIU/ml (0.358-4.75)
[2019-09-21 13:59] LABS: VITAMIN D, 25-HYDROXY 19.5 ng/mL (30-100)
[2019-09-21 14:00] LABS: FERRITIN 94.9 ng/mL (22.0-322.0)
== END | disposition home or self-care (01) ==
LOC: LAB 11:00
PROVIDERS: Internal Medicine; Internal Medicine Nephrology
DX: Z00.00 Encounter for general adult medical examination without abnormal findings (principal); E55.9 Vitamin D deficiency, unspecified; E78.2 Mixed hyperlipidemia; E11.22 Type 2 diabetes mellitus with diabetic chronic kidney disease; I12.9 Hypertensive chronic kidney disease with stage 1 through stage 4 chronic kidney disease, or unspecified chronic kidney disease; N18.3 Chronic kidney disease, stage 3 (moderate); D63.1 Anemia in chronic kidney disease; N25.81 Secondary hyperparathyroidism of renal origin

== ENCOUNTER → 2019-11-05 | Outpatient (CLI) | payer MEDICARE, OTHER | END | disposition home or self-care (01) | LOC: RESCLI 01:55 | DX: I48.91 Unspecified atrial fibrillation (principal); I10 Essential (primary) hypertension; E11.40 Type 2 diabetes mellitus with diabetic neuropathy, unspecified; I25.10 Atherosclerotic heart disease of native coronary artery without angina pectoris; E66.01 Morbid (severe) obesity due to excess calories; E55.9 Vitamin D deficiency, unspecified; E78.5 Hyperlipidemia, unspecified; K21.9 Gastro-esophageal reflux disease without esophagitis; F32.2 Major depressive disorder, single episode, severe without psychotic features; I73.9 Peripheral vascular disease, unspecified; Z79.4 Long term (current) use of insulin; Z79.899 Other long term (current) drug therapy ==

== ENCOUNTER → 2019-12-27 | Outpatient (CLI) | payer MEDICARE, OTHER | LOC: LAB 10:04 | DX: E11.65 Type 2 diabetes mellitus with hyperglycemia (principal) ==

== ENCOUNTER → 2020-01-19 | Outpatient (CLI) | payer MEDICARE, OTHER | LOC: RESCLI 01:45 | PROVIDERS: ATTEND Emergency Medicine | DX: I48.91 Unspecified atrial fibrillation (principal); I10 Essential (primary) hypertension; E11.40 Type 2 diabetes mellitus with diabetic neuropathy, unspecified; I25.10 Atherosclerotic heart disease of native coronary artery without angina pectoris; E66.01 Morbid (severe) obesity due to excess calories; E55.9 Vitamin D deficiency, unspecified; E78.5 Hyperlipidemia, unspecified; F32.2 Major depressive disorder, single episode, severe without psychotic features; K21.9 Gastro-esophageal reflux disease without esophagitis; I73.9 Peripheral vascular disease, unspecified; Z79.4 Long term (current) use of insulin; Z79.899 Other long term (current) drug therapy; Z98.890 Other specified postprocedural states; Z87.891 Personal history of nicotine dependence; Z88.8 Allergy status to other drugs, medicaments and biological substances ==

== ENCOUNTER → 2020-02-07 | Outpatient (CLI) | payer MEDICARE, OTHER ==
[2020-02-07 08:20] LABS: BILIRUBIN NEGATIVE; BLOOD NEGATIVE (NEGATIVE); CLARITY CLEAR (CLEAR); COLOR YELLOW (YELLOW); GLUCOSE 3+; KETONE NEGATIVE; LEUKO ESTERASE NEGATIVE (NEGATIVE); NITRITE NEGATIVE (NEGATIVE); SPECIFIC GRAVITY 1.015 (1.001-1.030); UROBILINOGEN 0.2 E.U./dl (0.0-1.0)
[2020-02-07 08:28] LABS: URINE CREATININE RANDOM 38.2 mg/dL
[2020-02-07 08:44] LABS: EPITHELIAL CELLS 0-2; RBC 0-2 rbc/hpf (0-2); WBC 0-2 wbc/hpf (0-5)
[2020-02-07 08:47] LABS: ALBUMIN 3.3 gm/dl (3.1-4.5); CREATININE 1.53 mg/dL (0.70-1.30); POTASSIUM 3.7 mmol/L (3.5-5.1)
[2020-02-07 08:49] LABS: ALBUMIN 3.3 gm/dl (3.1-4.5); CREATININE 1.48 mg/dL (0.70-1.30); POTASSIUM 3.7 mmol/L (3.5-5.1)
[2020-02-07 08:57] LABS: BASO # 0.1 10*3/uL (0.0-0.1); BASO % 0.7 % (0.0-1.0); EOS # 0.4 10*3/uL (0.0-0.4); EOS % 3.9 % (1.0-4.0); HEMATOCRIT 46.6 % (42.0-52.0); LYMPH # 2.8 10*3/uL (1.3-4.4); LYMPH % 29.4 % (27.0-41.0); MEAN CELL VOLUME 82.9 fl (80.0-94.0); MEAN CORPUSCULAR HGB 25.8 pg (27.0-31.0); MEAN CORPUSCULAR HGB CONC 31.1 g/dl (33.0-37.0); MEAN PLATELET VOLUME 9.2 fl (9.6-12.3); MONO # 0.9 10*3/uL (0.1-1.0); MONO % 9.7 % (3.0-9.0); NEUT # 5.2 10*3/uL (2.3-7.9); NEUT % 55.9 % (47.0-73.0); PLATELET COUNT AUTOMATED 380 10*3/uL (130-400); RED BLOOD COUNT 5.62 10*6/uL (4.50-5.90); RED CELL DISTRI WIDTH 14.7 % (0-14.5); WHITE BLOOD COUNT 9.3 10*3/uL (4.8-10.8)
[2020-02-07 09:10] LABS: VITAMIN D, 25-HYDROXY 30.5 ng/mL (30-100)
[2020-02-07 09:11] LABS: PTH INTACT 99.1 pg/mL (18.5-88.0)
== END | disposition home or self-care (01) ==
LOC: LAB 07:45
PROVIDERS: Internal Medicine Cardiovascular Disease; Internal Medicine Nephrology; ATTEND Hospitalist
DX: N18.3 Chronic kidney disease, stage 3 (moderate) (principal); D63.1 Anemia in chronic kidney disease; N25.81 Secondary hyperparathyroidism of renal origin; I25.10 Atherosclerotic heart disease of native coronary artery without angina pectoris; E55.9 Vitamin D deficiency, unspecified

== ENCOUNTER 2020-03-26 07:05 | Inpatient (IN) | payer MEDICARE ==
[~2020-03-26] VITALS: Ht 170.1 cm; Wt 128.4 kg
[2020-03-26] VITALS (11 sets, daily range): BP systolic 98–134; BP diastolic 37–78
[2020-03-26 07:31] LABS: BASO # 0.1 10*3/uL (0.0-0.1); BASO % 0.3 % (0.0-1.0); HEMATOCRIT 39.9 % (42.0-52.0); LYMPH # 1.3 10*3/uL (1.3-4.4); LYMPH % 4.4 % (27.0-41.0); MEAN CELL VOLUME 78.4 fl (80.0-94.0); MEAN CORPUSCULAR HGB 25.1 pg (27.0-31.0); MEAN CORPUSCULAR HGB CONC 32.1 g/dl (33.0-37.0); MEAN PLATELET VOLUME 9.2 fl (9.6-12.3); MONO # 2.4 10*3/uL (0.1-1.0); MONO % 8.2 % (3.0-9.0); NEUT # 24.5 10*3/uL (2.3-7.9); NEUT % 84.8 % (47.0-73.0); PLATELET COUNT AUTOMATED 355 10*3/uL (130-400); RED BLOOD COUNT 5.09 10*6/uL (4.50-5.90); RED CELL DISTRI WIDTH 15.9 % (0-14.5); WHITE BLOOD COUNT 28.8 10*3/uL (4.8-10.8)
[2020-03-26 07:43] LABS: ACT PARTIAL THROMBO TIME 31.9 SECONDS (20.0-32.1); INTERNATIONAL NORM RATIO 1.3 (2.0-3.5)
[2020-03-26 07:47] LABS: POTASSIUM 3.6 mmol/L (3.5-5.1); TOTAL PROTEIN 7.1 gm/dL (6.4-8.2)
[2020-03-26 07:48] LABS: TROPONIN I 0.02 ng/ml (<0.045)
[2020-03-26 07:53] LABS: TOTAL CELLS COUNTED 100 #CELLS
[2020-03-26 07:54] LABS: PLATELET SUFFICIENCY NORMAL (NORMAL); TOXIC GRANULATION SLIGHT
--- NOTE | 2020-03-26 10:06 | NUR ---
REPORTS INCREASED SOB. POX 93-94% ON ROOM AIR. PLACED ON 2L NC.
--- NOTE | 2020-03-26 11:25 | NUR ---
PT'S FAMILY MEMBERS NOW CALL, STATE TO "PLEASE DO NOT GIVE HIM HERPARIN OR BLOOD THINNERS FOR THE CELLULITIS LIKE LAST TIME....WHICH CAUSED HIM A SEVERE GI BLEED AND A HELICOPTER RIDE".
--- NOTE | 2020-03-26 12:13 | NUR ---
PT'S PULSE IS ELEVATED HIGHER THAN ON HIS ARRIVAL. 137 AT THIS TIME. PT DENIES SOB BUT NOW PRESENTS WITH TACHYPNEA AT 26-28. PT DOES NOT USE OXYGEN AT HOME AND POX IS 95% ON ROOM AIR BUT I STARTED 3L NC O2. SKIN FEELS WARMER, REPEAT TEMP IS 99.3 NOW. INITIAL ANTIBIOITC ADMINISTERED NOW. WILL CONTACT DR ABOUT PULSE RATE.
--- NOTE | 2020-03-26 13:00 | NUR ---
AFTER NOTIFYING DR BAKER ABOUT PT'S ELEVATED TEMP, PULSE AND DECREASED BP HE RETURNS CALL AND STATES THE PT IS DR KHAN. I WILL OBTAIN THE PROPER CONTACT INFO AND CALL DR ZHAO BUT ALERT DR STYLES IN THE MEANTIME.
--- NOTE | 2020-03-26 13:19 | NUR ---
CARDIZEM 10MG BOLUS HAS IMPROVED PULSE FROM 154 TO 109. BP STABLE.
--- NOTE | 2020-03-26 13:58 | NUR ---
PULSE RATE INCREASING, DR STYLES MADE AWARE, NEW ORDERS PENDING.
--- NOTE | 2020-03-26 15:00 | NUR ---
PT UP TO TOILET WITH NURSE AIDE AFTER HAVING BEEN INCONTINENT OF STOOL IN BED A SHORT TIME AGO. CARDIZEM DOSE AND SALINE PLACED ON HOLD UNTIL PT CLEANSED. NURSE REPORT PROVIDED TO NIKITA CAPUTO RN, FOR CONTINUATION OF CARE. INPATIENT BED PROVIDED TO PATIENT AT HIS REQUEST DUE TO THE E.D. BEING UNCOMFORTABLE. VITALS STABLE DESPITE TACHYCARDIA.
--- NOTE | 2020-03-26 17:30 | NUR ---
A 64, admitted to , under the services of Dr. PAVEL KEARNEY,ANGELLA Reyes with a diagnosis of CELLULITIS OF LOWER LEG, COPD EXACERBATION. Chief complaint is SOB. Patient arrived via bed from ER. Monitor applied. Initial assessment completed. Vital signs taken and recorded. DR. PAVEL KEARNEY,ANGELLA Reyes notified of admission to the unit. Orders received. See assessment for past medical history, medications and allergies. Patient and/or family oriented to unit. [address] visitation policy reviewed. Clothing/patient valuable form completed. JAMARCUS JEFFERY
--- NOTE | 2020-03-26 21:30 | NUR ---
Pt placed on CPAP 18 on the V30. This is pts home setting. There is 4L of oxygen bled in to CPAP. SPO2 94% HR 107
[2020-03-27] VITALS (7 sets, daily range): BP systolic 90–116; BP diastolic 50–74
[2020-03-27 05:57] LABS: CREATININE 2.87 mg/dL (0.70-1.30); POTASSIUM 3.9 mmol/L (3.5-5.1)
[2020-03-27 06:05] LABS: HEMATOCRIT 35.7 % (42.0-52.0); MEAN CELL VOLUME 78.8 fl (80.0-94.0); MEAN CORPUSCULAR HGB 25.2 pg (27.0-31.0); MEAN CORPUSCULAR HGB CONC 31.9 g/dl (33.0-37.0); PLATELET COUNT AUTOMATED 367 10*3/uL (130-400); RED BLOOD COUNT 4.53 10*6/uL (4.50-5.90); RED CELL DISTRI WIDTH 15.9 % (0-14.5); WHITE BLOOD COUNT 27.9 10*3/uL (4.8-10.8)
[2020-03-27 07:13] LABS: TOTAL CELLS COUNTED 100 #CELLS
[2020-03-27 07:14] LABS: BURR CELLS FEW; DOHLE BODIES FEW; MICROCYTOSIS SLIGHT; PLATELET SUFFICIENCY NORMAL (NORMAL); POLYCHROMASIA SLIGHT; ROULEAUX SLIGHT
--- NOTE | 2020-03-27 07:30 | NUR ---
PT RESTING IN BED. VOICES NO CONCERNS AT THIS TIME. RESPS EASY AND NONLABORED.VSS. WHITE BOARD UPDATED. POC DISCUSSED W PT. A/O X3. C/O FATIGUE AND SOB. 4L NC NON DEP. STATES HIS SON IS GOING TO BRING IN HIS CPAP FROM HOME TO USE. LLE RED/SWOLLEN. CARDIZEM DRIP INFUSING @5ML/H.WILL CONTINUE TO MONITOR. CALL LIGHT WITHIN REACH.
--- NOTE | 2020-03-27 09:00 | NUR ---
Metal Turner in to talk to patient. Patient states lives at home with his . There are 0 steps in the home. There is a wheelchair ramp. Physician: resident clinic and Dr. Carlton Adams Pharmacy: [facility] Home health services: would like [facility] on discharge Patient's level of ADLs: minimal assistance Patient has working utilities: yes DME: c-pap, quad cane Follow-up physician's appointment after d/c: he prefers to make his own follow up appt after discharge Does patient want to access PORTAL?: no Discharge plan discussed with patient. He lives at home with his . He is independent in his ADLs and ambulates with a quad cane. Discussed home health care services and he is agreeable. When provided with a list of agencies he chose [facility]. He states he was going to the [facility] 3 days a week. He states his son will provide transportation on discharge. When medically stable he will be discharged to home with [facility] services. DONELL MILLER
--- NOTE | 2020-03-27 09:10 | NUR ---
PHYSICAL THERAPY Physical Therapy evaluation completed on 4th floor with full evaluation to follow. Recommend physical therapy per plan of care and SNF upon discharge, pt assist 2 for mobility using FWW and 4L 02 NC. Pt does not hav FWW or 02 at home. If home would recomend 24 hr care given level of assist, need for FWW possible 02. Would also benefit from OT consult while in hospital as well as full HH services,PT/OT if to go home. Thank you for this referral. Evie Ferro PT
--- NOTE | 2020-03-27 09:38 | NUR ---
Nursing screen received and chart was reviewed. Patient admitted for COPD exacerbation and cellulitis of the Left Lower Leg. Patient has a past medical history of type 2 diabetes and COPD. If patient has a decline in ADLs, transfers or functional mobility please send OT orders. Thank you. Melodie Way OTR/L
--- NOTE | 2020-03-27 10:53 | NUR ---
DR JEAN NOTIFIED OF NEW CONSULT
--- NOTE | 2020-03-27 10:57 | NUR ---
PHYSICAL THERAPY Nursing screen received and chart reviewed. PT orders received. Will follow to complete skilled PT evaluation. Thank you. Hortensia Sanchez,PT,DPT
--- NOTE | 2020-03-27 11:22 | NUR ---
DR WEIR NOTIFIED OF NEW CONSULT
--- NOTE | 2020-03-27 14:35 | NUR ---
PER PT HE IS NOT ALLERGIC TO VANCOMYCIN. ALLERGY SCREEN UPDATED.
--- NOTE | 2020-03-27 17:22 | NUR ---
PT TAKEN OFF CARDIZEM DRIP AT THIS TIME. HEART RATE 70-80'S PER CM. WILL MONITOR.
--- NOTE | 2020-03-27 18:45 | NUR ---
HR REMAINS IN THE 80'LOW 90'S PER CM.
--- NOTE | 2020-03-27 22:35 | NUR ---
PT PLACED ON HOME CPAP. SPOKE WITH NURSE AND SAID IT WAS OKAY. 3L BLEED IN
[2020-03-28] VITALS: BP 110/52
--- NOTE | 2020-03-28 02:30 | NUR ---
PT CONTINUES TO WEAR HOME CPAP WITH 3L BLEED
[2020-03-28 06:26] LABS: HEMATOCRIT 33.9 % (42.0-52.0); MEAN CELL VOLUME 77.9 fl (80.0-94.0); MEAN CORPUSCULAR HGB 25.5 pg (27.0-31.0); MEAN CORPUSCULAR HGB CONC 32.7 g/dl (33.0-37.0); NUCLEATED RED BLOOD CELL 0.1 % (0.0-0.0); PLATELET COUNT AUTOMATED 466 10*3/uL (130-400); RED BLOOD COUNT 4.35 10*6/uL (4.50-5.90); RED CELL DISTRI WIDTH 16.1 % (0-14.5); WHITE BLOOD COUNT 27.5 10*3/uL (4.8-10.8)
[2020-03-28 06:47] LABS: TOTAL CELLS COUNTED 100 #CELLS
[2020-03-28 06:48] LABS: BURR CELLS FEW; PLATELET SUFFICIENCY NORMAL (NORMAL)
[2020-03-28 06:49] LABS: MICROCYTOSIS SLIGHT; ROULEAUX SLIGHT
--- NOTE | 2020-03-28 07:00 | NUR ---
ARRIVED ON SHIFT, REPORT RECEIVED FROM OFFGOING NURSE, ASSUMED CARE OF PATIENT.
--- NOTE | 2020-03-28 07:35 | NUR ---
INTRODUCED SELF TO PATIENT, BED IN LOW POSITION, WHEEL LOCKS ENGAGED, SIDE RAILS UP X 2 FOR TURNING AND REPSOSITIONING, CALL LIGHT WITHIN REACH NO NEEDS VOICED AT THIS TIME WHITE BOARD UPDATED.
[2020-03-28 08:00] VITALS: BP 112/58
--- NOTE | 2020-03-28 08:15 | NUR ---
PHYSICAL THERAPY Patient seen this am 1:1 for therapy visit and was resting supine in bed upon therapist arrival. Patient identified by name / and was very pleasant, presenting with continuos IV treatment / O2-4L via NC. Patient also presented with L LE increased redness / edema in Gastroc area, reporting 10/10 pain upon movement. Patient transfers supine to sit EOB with MIN A x 1, tolerating several minutes static EOB to collect himself. Patient able to complete seated B LE therex, all planes, AROM, x 10 reps each to increase LE strength, then attempted sit to stand transfer from low bed surface, however unable to stand fully upright due to L LE pain c/o. Patient took a few minutes to rest as [facility] transport staff arrived to take patient down for MRI. Patient able to complete sit to stand, MOD A, use of wh walker standing support, then performed SPT to w/c for transport, MIN A x 1, requiring v/c for improved walker safety / navigation. Patient remained under Staff direct Supervision and will continue per POC as tolerated, total treatment time 16 minutes. Robbi Mo, [employer]SEMBLER
--- NOTE | 2020-03-28 08:45 | NUR ---
CM in to see patient. No new needs or request at this time. Discussed short term rehab and he refuses. He remains agreeable to [facility] services. When medically stable he will be discharged to home.
[2020-03-28 08:49] LABS: ALBUMIN 1.6 gm/dl (3.1-4.5); CREATININE 4.32 mg/dL (0.70-1.30); POTASSIUM 3.8 mmol/L (3.5-5.1); TOTAL PROTEIN 6.7 gm/dL (6.4-8.2)
--- NOTE | 2020-03-28 11:49 | NUR ---
Faxed home health care referral to [facility] along with face to face and clinical.
--- NOTE | 2020-03-28 12:00 | NUR ---
Faxed front wheeled walker prescription to [facility]
--- NOTE | 2020-03-28 12:42 | NUR ---
Shift chart check completed.
--- NOTE | 2020-03-28 14:04 | NUR ---
CALL PLACED TO DR. WERNER OFFICE SPOKE WITH KEVIN, ADVISED OF CONSULT.
[2020-03-28 16:03] VITALS: BP 108/75
[2020-03-28 16:52] LABS: BILIRUBIN 2+ (Negative); BLOOD Negative (Negative); CLARITY Cloudy (Clear); COLOR Dark Yellow (Yellow); GLUCOSE 1+ (Negative); KETONE Trace (Negative); LEUKO ESTERASE 1+ (Negative); NITRITE Positive (Negative)
--- NOTE | 2020-03-28 16:55 | NUR ---
CALL PLACED TO DR. ZHAO, NOTIFIED THAT PATIENT HAS BEEN UNABLE VOID, HE ORDERED STRAIGHT CATH TO COLLECT URINE, HE ALSO REQUESTED THAT DR. ELIZONDO BE CALLED FOR CONCERNS OF PATIENT BEING LETHARGIC ALSO ORDERED AMONIA LEVEL. PATIENT IS ALSO DIABETIC, BS CHECKED OBTAINED RESULT OF 126, CALL PLACED TO DR. ELIZONDO, AWAITNING CALL BACK.
[2020-03-28 17:14] LABS: BACTERIA TRACE
[2020-03-28 17:16] LABS: URINE CHLORIDE, RANDOM < 10 mmol/L
--- NOTE | 2020-03-28 18:10 | NUR ---
RECEIVED CALL FROM FAMILY MEMBER DIVINE, SHE WAS ASKING ABOUT PATIENT, ADVISED THAT PATIENT HAD DECLINED TO PROVIDE PASSWORD, WENT DOWN TO SEE PATIENT WITH SUPERVISORY VINAY, HE REQUESTED WE CALL HIS RENY TO HAVE HER SET UP PASSWORD, PER PATIENT REQUEST RENY CALLED, SHE SET UP PASSWORD OF MAX, UPDATED ON PATIENTS CONDITION, THAT PATIENT HAS SLEPT MUCH OF THE DAY, ALSO ADVISED THAT DR. ZHAO HAD BEEN NOTIFIED AND ORDERED AMONIA LEVEL, WELL CHECKING BS, AND THAT ID HAD BEEN CALLED DUE TO ELEVATED WBC.
[2020-03-28 20:00] VITALS: BP 85/62
[2020-03-28 20:15] VITALS: BP 84/62
--- NOTE | 2020-03-28 20:20 | NUR ---
CALLED INFORMED THAT PATIENT WILL AROUSE BUT FALLS ASLEEP/DROWSY ORIENTED X3 MANUAL PRESSURE ON . STATES TO PLACE ORDER FOR NS @ 100CC/HR X1 BAG.
--- NOTE | 2020-03-28 23:16 | NUR ---
PATIENTS PRESSURE NOTED TO BE BETTER AT 98/52.
--- NOTE | 2020-03-28 23:30 | NUR ---
PATIENT RESTING QUIETLY, EYES CLOSED. PATIENT AROUSE EASILY, VOICED NO COMPLAINTS. PATIENT JUST WANTS TO SLEEP
[2020-03-29] VITALS (33 sets, daily range): BP systolic 78–173; BP diastolic 31–88
--- NOTE | 2020-03-29 04:50 | NUR ---
PT TRANSFERRED FROM , BP 84/40 (M), P 87, R 30, T 96.8, POX 83% ON 10L NC. PT WAS DIAPHORETIC, UNRESPONSIVE, RESP LABORED AND SHALLOW. RESP CALLED, LEVOPHED STARTED AT 10MICS. LABS ORDERED.
--- NOTE | 2020-03-29 04:55 | NUR ---
CALLED, INFORMED THAT NOTED PATIENT TO BE DIAPHORETIC/INCREASE RESP TOOK MANUL BP OF 78/52, HEAR RATE HAD DROP TO 30'S PER PACKAGE DELIVERY DRIVER, FINGERSTICK BGM OF 145, SPO2 OF 79% ON 3L. STATES TO TRANSFER TO ICU AND SHE WOULD CALL THE UNIT.
--- NOTE | 2020-03-29 05:02 | NUR ---
PATIENT TRANSFERRED BACK TO ICCU. REPORT GIVEN
--- NOTE | 2020-03-29 05:30 | NUR ---
Pt obtunded and sent to the ICU on 15L NC - 92%. ABG was sent to lab and immediately placed on BiPap 22/10 and 60%. SPO2 93% Hr86 BBS crackles - ABG will be drawn in 2 hours.
[2020-03-29 05:34] LABS: ABG BASE EXCESS -11.6 mmol/L (-2.0-2.0)
[2020-03-29 05:36] LABS: ARTERIAL BLOOD GAS PH 7.114 (7.35-7.45)
--- NOTE | 2020-03-29 05:39 | NUR ---
NEXT OF KIN () LUC MADE AWARE OF TRANSFER TO ICU.
[2020-03-29 05:40] LABS: ALBUMIN 1.7 gm/dl (3.1-4.5); CREATININE 4.52 mg/dL (0.70-1.30); TOTAL PROTEIN 7.6 gm/dL (6.4-8.2)
[2020-03-29 05:56] LABS: POTASSIUM 4.8 mmol/L (3.5-5.1)
[2020-03-29 05:58] LABS: HEMATOCRIT 40.7 % (42.0-52.0); MEAN CORPUSCULAR HGB 25.3 pg (27.0-31.0); MEAN PLATELET VOLUME 9.8 fl (9.6-12.3); NUCLEATED RED BLOOD CELL 0.1 10*3/uL (0.0-0.0); NUCLEATED RED BLOOD CELL 0.2 % (0.0-0.0); RED BLOOD COUNT 4.98 10*6/uL (4.50-5.90); RED CELL DISTRI WIDTH 17.1 % (0-14.5)
[2020-03-29 05:59] LABS: MEAN CELL VOLUME 81.7 fl (80.0-94.0); PLATELET COUNT AUTOMATED 615 10*3/uL (130-400)
[2020-03-29 06:00] LABS: WHITE BLOOD COUNT 39.2 10*3/uL (4.8-10.8)
--- NOTE | 2020-03-29 06:00 | NUR ---
DR ZEPEDA NOTIFIED OF ABG RESULTS. NEW ORDER TO CONSULT DR RYDER.
--- NOTE | 2020-03-29 06:10 | NUR ---
DR RYDER NOTIFIED OF CONSULT AND UPDATED ON ABG RESULTS. ORDER TO OBTAIN ANOTHER SET OF ABG'S IN 2 HOURS AND HOLD OF ON CT OF CHEST UNTIL HE COMES IN TO SEE PT.
--- NOTE | 2020-03-29 06:24 | NUR ---
DR ZEPEDA NOTIFIED OF LAB RESULTS. NEW ORDERS FOR NS WITH 1 AMP BICAARB AT 100CC/HR. CONSULT XANDER LOVE 667 TID WITH MEALS.
[2020-03-29 07:04] LABS: PLATELET SUFFICIENCY HIGH (NORMAL); TOTAL CELLS COUNTED 100 #CELLS
--- NOTE | 2020-03-29 07:30 | NUR ---
DR WEIR NOTIFIED OF LAB RESULTS. NEW ORDER FOR VICTORINA AND D/C IVF'S.
[2020-03-29 07:37] LABS: ARTERIAL BLOOD GAS PH 7.272 (7.35-7.45)
[2020-03-29 07:38] LABS: ABG BASE EXCESS -10.7 mmol/L (-2.0-2.0)
--- NOTE | 2020-03-29 09:00 | NUR ---
CM in to see patient. He is currently on bipap. Discharge plan undecided at this time. Will continue to follow for any discharge planning needs.
--- NOTE | 2020-03-29 09:20 | NUR ---
PHYSICAL THERAPY Pt transfered to ICCU this AM due to declining respiratory status,hypotension and bradycardia. Will hold therapy at this time and will need new orders for Physical Therapy when/if pt medically approprite thank you Evie Ferro PT
[2020-03-29 09:33] LABS: CREATININE 4.18 mg/dL (0.70-1.30); POTASSIUM 4.8 mmol/L (3.5-5.1)
--- NOTE | 2020-03-29 10:00 | NUR ---
DR. RYDER HERE AND WANTS PATIENT INTUBATED. 1015- EVA FROM [facility] HERE AND PLACED A # 8 ENDOTUBE AT 23 LIP. OGT PLACED AND SECURED. CXR ORDERED.
--- NOTE | 2020-03-29 10:30 | NUR ---
Discussed discharge planning with Dr. Adams. Possible transfer to [facility].
[2020-03-29 11:11] LABS: CREATININE,URINE 283.7 mg/dL (Not Estab.)
--- NOTE | 2020-03-29 11:30 | NUR ---
DR. WEIR HERE AND ORDERS RECEIVED TO BOLUS WITH NS 500CC
[2020-03-29 13:02] LABS: ABG BASE EXCESS -11.9 mmol/L (-2.0-2.0); ARTERIAL BLOOD GAS PH 7.185 (7.35-7.45)
--- NOTE | 2020-03-29 13:30 | NUR ---
DR. WEIR HERE AND NOTIFIED THAT CXR IS SHOWING CHF
[2020-03-29 15:26] LABS: ALBUMIN 1.4 gm/dl (3.1-4.5); CREATININE 3.92 mg/dL (0.70-1.30); POTASSIUM 4.5 mmol/L (3.5-5.1); TOTAL PROTEIN 6.7 gm/dL (6.4-8.2)
[2020-03-29 15:50] LABS: ARTERIAL BLOOD GAS PH 7.25 (7.35-7.45)
[2020-03-29 15:51] LABS: ABG BASE EXCESS -10.8 mmol/L (-2.0-2.0)
--- NOTE | 2020-03-29 17:46 | NUR ---
DR. WEIR AND DR. RYDER NOTIFIED OF PATIENT TRANSFER TO [facility]
--- NOTE | 2020-03-29 18:00 | NUR ---
REPORT GIVEN TO [facility] FOR TRANSFER. FAMILY NOTIFIED
--- NOTE | 2020-03-29 19:55 | NUR ---
Patient left floor via [place] for transfer to [facility]. Accepting Dr. Leonard. All belongings sent with patient except home meds which are in icu and family will fruit picker friday.
--- NOTE | 2020-03-30 08:13 | NUR ---
PHYSICAL THERAPY CO-SIGN I approve of the Physical Therapy notes written above. Evie Ferro PT
== END 2020-03-29 21:13 | disposition short-term general hospital (02) | DRG 871 ==
LOC: ED 07:05 → ICCU 09:54 → EDHOLD 09:54 → 4E 09:54 → ICCU 03-29 04:59
PROVIDERS: Emergency Medicine; Internal Medicine; Internal Medicine Critical Care Medicine; Internal Medicine Nephrology; ADMIT Internal Medicine; ATTEND Internal Medicine
PROC: 5A09457 Assistance with Respiratory Ventilation, 24-96 Consecutive Hours, Continuous Positive Airway Pressure (ICD-10-PCS; 2020-03-27)
PROC: 5A1935Z Respiratory Ventilation, Less than 24 Consecutive Hours (ICD-10-PCS; principal; 2020-03-29)
PROC: 0BH17EZ Insertion of Endotracheal Airway into Trachea, Via Natural or Artificial Opening (ICD-10-PCS; 2020-03-29)
DX: A40.8 Other streptococcal sepsis (principal); E43 Unspecified severe protein-calorie malnutrition; J96.21 Acute and chronic respiratory failure with hypoxia; I48.21 Permanent atrial fibrillation; I50.22 Chronic systolic (congestive) heart failure; J44.1 Chronic obstructive pulmonary disease with (acute) exacerbation; E87.1 Hypo-osmolality and hyponatremia; I13.0 Hypertensive heart and chronic kidney disease with heart failure and stage 1 through stage 4 chronic kidney disease, or unspecified chronic kidney disease; L03.116 Cellulitis of left lower limb; Z68.41 Body mass index [BMI] 40.0-44.9, adult; N39.0 Urinary tract infection, site not specified; N17.9 Acute kidney failure, unspecified; I25.10 Atherosclerotic heart disease of native coronary artery without angina pectoris; E66.01 Morbid (severe) obesity due to excess calories; I87.2 Venous insufficiency (chronic) (peripheral); N18.32 Chronic kidney disease, stage 3b; G47.33 Obstructive sleep apnea (adult) (pediatric); M19.90 Unspecified osteoarthritis, unspecified site; E11.51 Type 2 diabetes mellitus with diabetic peripheral angiopathy without gangrene; E11.65 Type 2 diabetes mellitus with hyperglycemia; E11.22 Type 2 diabetes mellitus with diabetic chronic kidney disease; I48.0 Paroxysmal atrial fibrillation; E87.8 Other disorders of electrolyte and fluid balance, not elsewhere classified; E11.621 Type 2 diabetes mellitus with foot ulcer; L97.529 Non-pressure chronic ulcer of other part of left foot with unspecified severity; L97.519 Non-pressure chronic ulcer of other part of right foot with unspecified severity; R33.9 Retention of urine, unspecified; E88.09 Other disorders of plasma-protein metabolism, not elsewhere classified; Z88.1 Allergy status to other antibiotic agents; Z95.5 Presence of coronary angioplasty implant and graft; Z79.899 Other long term (current) drug therapy; Z89.431 Acquired absence of right foot; Z87.891 Personal history of nicotine dependence; Z83.3 Family history of diabetes mellitus; Z82.3 Family history of stroke; I25.2 Old myocardial infarction; Z82.49 Family history of ischemic heart disease and other diseases of the circulatory system; R65.20 Severe sepsis without septic shock

== ENCOUNTER → 2020-05-23 | Outpatient (CLI) | payer MEDICARE | END | disposition home or self-care (01) | LOC: WOUNDCARE 00:39 → EDSTATUS 14:36 | PROVIDERS: ATTEND Nurse Practitioner | DX: E11.621 Type 2 diabetes mellitus with foot ulcer (principal); L89.620 Pressure ulcer of left heel, unstageable; L97.422 Non-pressure chronic ulcer of left heel and midfoot with fat layer exposed; L89.890 Pressure ulcer of other site, unstageable; L97.522 Non-pressure chronic ulcer of other part of left foot with fat layer exposed; L03.116 Cellulitis of left lower limb; L84 Corns and callosities; E11.65 Type 2 diabetes mellitus with hyperglycemia; I10 Essential (primary) hypertension; I25.10 Atherosclerotic heart disease of native coronary artery without angina pectoris; E78.5 Hyperlipidemia, unspecified; Z95.5 Presence of coronary angioplasty implant and graft; Z87.891 Personal history of nicotine dependence ==

== ENCOUNTER → 2020-05-30 | Outpatient (CLI) | payer MEDICARE ==
[~2020-05-30] MED LIST changes: +Duragesic 50 M50 MCG T
== END | disposition home or self-care (01) ==
LOC: WOUNDCARE 00:06
PROVIDERS: ATTEND Nurse Practitioner
DX: E11.621 Type 2 diabetes mellitus with foot ulcer (principal); L89.620 Pressure ulcer of left heel, unstageable; L97.421 Non-pressure chronic ulcer of left heel and midfoot limited to breakdown of skin; L89.890 Pressure ulcer of other site, unstageable; L97.522 Non-pressure chronic ulcer of other part of left foot with fat layer exposed; L03.116 Cellulitis of left lower limb; L84 Corns and callosities; I25.10 Atherosclerotic heart disease of native coronary artery without angina pectoris; I10 Essential (primary) hypertension; E78.5 Hyperlipidemia, unspecified; M19.90 Unspecified osteoarthritis, unspecified site; G47.30 Sleep apnea, unspecified; Z95.5 Presence of coronary angioplasty implant and graft; Z87.891 Personal history of nicotine dependence

== ENCOUNTER 2020-06-26 07:34 | Inpatient (IN) | payer MEDICARE ==
[~2020-06-26] VITALS: Ht 170.1 cm; Wt 109.5 kg
[~2020-06-26 07:34] MED LIST changes: -Duragesic 50 M50 MCG T
[2020-06-26 07:37] VITALS: BP 189/87
[2020-06-26 08:20] LABS: BASO # 0.1 10*3/uL (0.0-0.1); BASO % 0.4 % (0.0-1.0); EOS # 0.6 10*3/uL (0.0-0.4); EOS % 4.6 % (1.0-4.0); HEMATOCRIT 32.9 % (42.0-52.0); LYMPH # 2.2 10*3/uL (1.3-4.4); LYMPH % 18.3 % (27.0-41.0); MEAN CELL VOLUME 77.8 fl (80.0-94.0); MEAN CORPUSCULAR HGB 22.7 pg (27.0-31.0); MEAN CORPUSCULAR HGB CONC 29.2 g/dl (33.0-37.0); MEAN PLATELET VOLUME 8.7 fl (9.6-12.3); MONO # 1.2 10*3/uL (0.1-1.0); MONO % 9.6 % (3.0-9.0); NEUT # 8.2 10*3/uL (2.3-7.9); NEUT % 66.8 % (47.0-73.0); PLATELET COUNT AUTOMATED 651 10*3/uL (130-400); RED BLOOD COUNT 4.23 10*6/uL (4.50-5.90); RED CELL DISTRI WIDTH 17.8 % (0-14.5); WHITE BLOOD COUNT 12.2 10*3/uL (4.8-10.8)
[2020-06-26 08:30] LABS: ACT PARTIAL THROMBO TIME 30.6 SECONDS (20.0-32.1); INTERNATIONAL NORM RATIO 1.1 (2.0-3.5)
[2020-06-26 08:34] LABS: ALBUMIN 2.1 gm/dl (3.1-4.5); ALKALINE PHOSPHATASE 150 U/L (45-117); BUN 12 mg/dl (7-24); CHLORIDE 106 mmol/L (98-107); CREATININE 0.83 mg/dL (0.70-1.30); POTASSIUM 3.8 mmol/L (3.5-5.1); SGOT/AST 12 IU/L (3-35); SGPT/ALT 9 U/L (12-78); SODIUM 136 mmol/L (136-145); TOTAL PROTEIN 8.5 gm/dL (6.4-8.2)
[2020-06-26 12:37] VITALS: BP 168/78
[2020-06-26 14:49] VITALS: BP 162/73
[2020-06-26 17:30] VITALS: BP 178/56
[2020-06-26 20:00] VITALS: BP 155/50
[2020-06-27] VITALS: BP 148/50
[2020-06-27 06:49] LABS: BASO # 0.1 10*3/uL (0.0-0.1); BASO % 0.6 % (0.0-1.0); EOS # 0.6 10*3/uL (0.0-0.4); EOS % 5.6 % (1.0-4.0); HEMATOCRIT 30.2 % (42.0-52.0); LYMPH # 2.4 10*3/uL (1.3-4.4); LYMPH % 24.4 % (27.0-41.0); MEAN CELL VOLUME 78.6 fl (80.0-94.0); MEAN CORPUSCULAR HGB 22.7 pg (27.0-31.0); MEAN CORPUSCULAR HGB CONC 28.8 g/dl (33.0-37.0); MEAN PLATELET VOLUME 8.5 fl (9.6-12.3); MONO % 10.1 % (3.0-9.0); NEUT # 5.8 10*3/uL (2.3-7.9); PLATELET COUNT AUTOMATED 615 10*3/uL (130-400); RED BLOOD COUNT 3.84 10*6/uL (4.50-5.90); RED CELL DISTRI WIDTH 17.8 % (0-14.5); WHITE BLOOD COUNT 9.8 10*3/uL (4.8-10.8)
[2020-06-27 07:28] LABS: CHLORIDE 106 mmol/L (98-107); POTASSIUM 4.1 mmol/L (3.5-5.1); SODIUM 136 mmol/L (136-145)
[2020-06-27 07:33] LABS: BUN 15 mg/dl (7-24); CREATININE 0.94 mg/dL (0.70-1.30)
[2020-06-27 08:00] VITALS: BP 133/46
[2020-06-27 12:00] VITALS: BP 132/59
[2020-06-27 16:00] VITALS: BP 124/63
[2020-06-27 20:00] VITALS: BP 153/50
[2020-06-28] VITALS: BP 136/75
[2020-06-28 08:00] VITALS: BP 135/46
[2020-06-28 12:00] VITALS: BP 143/43
[2020-06-28 16:00] VITALS: BP 153/72
[2020-06-28 20:00] VITALS: BP 126/65; BP 140/54
[2020-06-29] VITALS (10 sets, daily range): BP systolic 149–195; BP diastolic 53–87
[2020-06-30] VITALS: BP 170/78
[2020-06-30 07:23] LABS: BUN 23 mg/dl (7-24); CREATININE 1.12 mg/dL (0.70-1.30)
[2020-06-30 08:00] VITALS: BP 119/44
[2020-06-30 08:20] LABS: BASO % 0.2 % (0.0-1.0); HEMATOCRIT 30.9 % (42.0-52.0); LYMPH # 1.3 10*3/uL (1.3-4.4); LYMPH % 11.2 % (27.0-41.0); MEAN CELL VOLUME 77.8 fl (80.0-94.0); MEAN CORPUSCULAR HGB 22.7 pg (27.0-31.0); MEAN CORPUSCULAR HGB CONC 29.1 g/dl (33.0-37.0); MEAN PLATELET VOLUME 8.9 fl (9.6-12.3); MONO # 1.1 10*3/uL (0.1-1.0); MONO % 9.9 % (3.0-9.0); NEUT # 8.8 10*3/uL (2.3-7.9); NEUT % 78.3 % (47.0-73.0); PLATELET COUNT AUTOMATED 727 10*3/uL (130-400); RED BLOOD COUNT 3.97 10*6/uL (4.50-5.90); RED CELL DISTRI WIDTH 17.8 % (0-14.5); WHITE BLOOD COUNT 11.2 10*3/uL (4.8-10.8)
[2020-06-30 12:00] VITALS: BP 132/61
[2020-06-30 16:00] VITALS: BP 122/45
[2020-06-30 20:00] VITALS: BP 102/37
[2020-06-30 20:13] VITALS: BP 122/62
[2020-07-01] VITALS: BP 132/54
[2020-07-01 06:21] LABS: HEMATOCRIT 28.1 % (42.0-52.0); MEAN CELL VOLUME 77.8 fl (80.0-94.0); MEAN CORPUSCULAR HGB 22.7 pg (27.0-31.0); MEAN CORPUSCULAR HGB CONC 29.2 g/dl (33.0-37.0); MEAN PLATELET VOLUME 8.7 fl (9.6-12.3); PLATELET COUNT AUTOMATED 630 10*3/uL (130-400); RED BLOOD COUNT 3.61 10*6/uL (4.50-5.90); WHITE BLOOD COUNT 13.3 10*3/uL (4.8-10.8)
[2020-07-01 07:24] LABS: TOTAL CELLS COUNTED 100 #CELLS
[2020-07-01 07:25] LABS: MICROCYTOSIS SLIGHT; OVALOCYTES FEW; PLATELET SUFFICIENCY HIGH (NORMAL); POLYCHROMASIA SLIGHT
[2020-07-01 08:00] VITALS: BP 126/60
[2020-07-01 12:00] VITALS: BP 113/44
[2020-07-01 16:00] VITALS: BP 147/64
[2020-07-01 20:00] VITALS: BP 121/68
[2020-07-02] VITALS: BP 110/49
[2020-07-02 00:54] VITALS: BP 124/68
[2020-07-02 06:17] LABS: BASO # 0.1 10*3/uL (0.0-0.1); BASO % 0.7 % (0.0-1.0); EOS # 0.5 10*3/uL (0.0-0.4); EOS % 4.3 % (1.0-4.0); LYMPH # 3.3 10*3/uL (1.3-4.4); LYMPH % 28.9 % (27.0-41.0); MEAN CELL VOLUME 78.5 fl (80.0-94.0); MEAN CORPUSCULAR HGB 22.3 pg (27.0-31.0); MEAN CORPUSCULAR HGB CONC 28.4 g/dl (33.0-37.0); MEAN PLATELET VOLUME 8.6 fl (9.6-12.3); MONO # 1.4 10*3/uL (0.1-1.0); MONO % 12.4 % (3.0-9.0); NEUT % 53.3 % (47.0-73.0); PLATELET COUNT AUTOMATED 644 10*3/uL (130-400); RED BLOOD COUNT 3.95 10*6/uL (4.50-5.90); RED CELL DISTRI WIDTH 18.1 % (0-14.5); WHITE BLOOD COUNT 11.3 10*3/uL (4.8-10.8)
[2020-07-02 08:00] VITALS: BP 148/52
[2020-07-02 12:00] VITALS: BP 118/62
[2020-07-02 16:00] VITALS: BP 136/64
[2020-07-02 20:00] VITALS: BP 116/56
[2020-07-03] VITALS: BP 141/38
[2020-07-03 00:30] VITALS: BP 134/50
[2020-07-03 06:23] LABS: BASO # 0.1 10*3/uL (0.0-0.1); BASO % 0.7 % (0.0-1.0); EOS # 0.6 10*3/uL (0.0-0.4); EOS % 5.8 % (1.0-4.0); LYMPH # 3.3 10*3/uL (1.3-4.4); LYMPH % 29.9 % (27.0-41.0); MEAN CELL VOLUME 79.6 fl (80.0-94.0); MEAN CORPUSCULAR HGB 22.8 pg (27.0-31.0); MEAN CORPUSCULAR HGB CONC 28.7 g/dl (33.0-37.0); MEAN PLATELET VOLUME 8.2 fl (9.6-12.3); MONO # 1.4 10*3/uL (0.1-1.0); MONO % 12.9 % (3.0-9.0); NEUT # 5.6 10*3/uL (2.3-7.9); NEUT % 50.2 % (47.0-73.0); PLATELET COUNT AUTOMATED 537 10*3/uL (130-400); RED BLOOD COUNT 3.77 10*6/uL (4.50-5.90); RED CELL DISTRI WIDTH 17.9 % (0-14.5); WHITE BLOOD COUNT 11.1 10*3/uL (4.8-10.8)
[2020-07-03 08:00] VITALS: BP 155/59
[2020-07-03 12:00] VITALS: BP 130/54
[2020-07-03] MEDS ORDERED: Duragesic 50 M50 MCG T (14:30)
[2020-07-03 16:00] VITALS: BP 155/66
== END 2020-07-03 17:23 | DRG 239 ==
LOC: ED 07:34 → 5E 09:23 → EDHOLD 09:23 → 5E 14:41
PROVIDERS: Family Medicine; Orthopaedic Surgery; ADMIT Internal Medicine; ATTEND Internal Medicine
PROC: 0Y6J0Z1 Detachment at Left Lower Leg, High, Open Approach (ICD-10-PCS; 2020-06-29)
PROC: 3E0T3BZ Introduction of Anesthetic Agent into Peripheral Nerves and Plexi, Percutaneous Approach (ICD-10-PCS; 2020-06-29)
PROC: 5A09357 Assistance with Respiratory Ventilation, Less than 24 Consecutive Hours, Continuous Positive Airway Pressure (ICD-10-PCS; principal; 2020-06-30)
PROC: 5A09357 Assistance with Respiratory Ventilation, Less than 24 Consecutive Hours, Continuous Positive Airway Pressure (ICD-10-PCS; 2020-07-02)
DX: E11.51 Type 2 diabetes mellitus with diabetic peripheral angiopathy without gangrene (principal); E43 Unspecified severe protein-calorie malnutrition; L03.116 Cellulitis of left lower limb; L97.928 Non-pressure chronic ulcer of unspecified part of left lower leg with other specified severity; M86.8X6 Other osteomyelitis, lower leg; E11.69 Type 2 diabetes mellitus with other specified complication; N18.9 Chronic kidney disease, unspecified; I12.9 Hypertensive chronic kidney disease with stage 1 through stage 4 chronic kidney disease, or unspecified chronic kidney disease; E11.22 Type 2 diabetes mellitus with diabetic chronic kidney disease; E11.65 Type 2 diabetes mellitus with hyperglycemia; Z20.822 Contact with and (suspected) exposure to COVID-19; K21.00 Gastro-esophageal reflux disease with esophagitis, without bleeding; E66.01 Morbid (severe) obesity due to excess calories; E11.622 Type 2 diabetes mellitus with other skin ulcer; E11.42 Type 2 diabetes mellitus with diabetic polyneuropathy; E11.610 Type 2 diabetes mellitus with diabetic neuropathic arthropathy; Z82.49 Family history of ischemic heart disease and other diseases of the circulatory system; Z79.82 Long term (current) use of aspirin; Z79.899 Other long term (current) drug therapy; Z79.4 Long term (current) use of insulin; I25.2 Old myocardial infarction; Z68.37 Body mass index [BMI] 37.0-37.9, adult

== ENCOUNTER → 2020-08-07 | Outpatient (CLI) | payer MEDICARE ==
[~2020-08-07] MED LIST changes: +Duragesic 50 M50 MCG T
== END | disposition home or self-care (01) ==
LOC: RESCLI 00:36
PROVIDERS: ATTEND Internal Medicine Nephrology
DX: I11.0 Hypertensive heart disease with heart failure (principal); I50.22 Chronic systolic (congestive) heart failure; I48.91 Unspecified atrial fibrillation; E11.40 Type 2 diabetes mellitus with diabetic neuropathy, unspecified; I25.10 Atherosclerotic heart disease of native coronary artery without angina pectoris; E66.01 Morbid (severe) obesity due to excess calories; E55.9 Vitamin D deficiency, unspecified; E78.5 Hyperlipidemia, unspecified; K21.9 Gastro-esophageal reflux disease without esophagitis; I73.9 Peripheral vascular disease, unspecified; M06.9 Rheumatoid arthritis, unspecified; F51.01 Primary insomnia; J45.30 Mild persistent asthma, uncomplicated; Z79.899 Other long term (current) drug therapy; Z79.4 Long term (current) use of insulin; Z89.512 Acquired absence of left leg below knee; Z79.82 Long term (current) use of aspirin; Z98.890 Other specified postprocedural states; Z87.891 Personal history of nicotine dependence; Z88.8 Allergy status to other drugs, medicaments and biological substances

== ENCOUNTER → 2020-10-18 | Outpatient (CLI) | payer MEDICARE | END | disposition home or self-care (01) | LOC: RESCLI 02:18 | PROVIDERS: ATTEND Internal Medicine | DX: I11.0 Hypertensive heart disease with heart failure (principal); I50.22 Chronic systolic (congestive) heart failure; E78.5 Hyperlipidemia, unspecified; K21.9 Gastro-esophageal reflux disease without esophagitis; E11.40 Type 2 diabetes mellitus with diabetic neuropathy, unspecified; I48.91 Unspecified atrial fibrillation; I25.10 Atherosclerotic heart disease of native coronary artery without angina pectoris; M06.9 Rheumatoid arthritis, unspecified; E66.01 Morbid (severe) obesity due to excess calories; F51.01 Primary insomnia; I73.9 Peripheral vascular disease, unspecified; J45.30 Mild persistent asthma, uncomplicated; G89.29 Other chronic pain; D50.8 Other iron deficiency anemias; Z79.4 Long term (current) use of insulin; Z89.512 Acquired absence of left leg below knee; Z79.82 Long term (current) use of aspirin; Z79.899 Other long term (current) drug therapy; Z98.890 Other specified postprocedural states; Z95.828 Presence of other vascular implants and grafts ==

== ENCOUNTER → 2020-12-04 | Outpatient (CLI) | payer MEDICARE, MEDICAID ==
[2020-12-04 08:30] LABS: BASO # 0.1 10*3/uL (0.0-0.1); BASO % 0.9 % (0.0-1.0); EOS # 0.5 10*3/uL (0.0-0.4); EOS % 4.9 % (1.0-4.0); HEMATOCRIT 48.5 % (42.0-52.0); LYMPH # 3.4 10*3/uL (1.3-4.4); LYMPH % 36.9 % (27.0-41.0); MEAN CELL VOLUME 81.2 fl (80.0-94.0); MEAN CORPUSCULAR HGB 24.8 pg (27.0-31.0); MEAN CORPUSCULAR HGB CONC 30.5 g/dl (33.0-37.0); MEAN PLATELET VOLUME 8.9 fl (9.6-12.3); MONO % 10.4 % (3.0-9.0); NEUT # 4.3 10*3/uL (2.3-7.9); NEUT % 46.7 % (47.0-73.0); PLATELET COUNT AUTOMATED 425 10*3/uL (130-400); RED BLOOD COUNT 5.97 10*6/uL (4.50-5.90); RED CELL DISTRI WIDTH 18.3 % (0-14.5); WHITE BLOOD COUNT 9.3 10*3/uL (4.8-10.8)
[2020-12-04 09:04] LABS: ALBUMIN 3.6 gm/dl (3.1-4.5); BUN 25 mg/dl (7-24); CHLORIDE 107 mmol/L (98-107); CHOLESTEROL 139 mg/dL (<200); CREATININE 1.38 mg/dL (0.70-1.30); IRON 62 ug/dL (65-175); LDL CHOLESTEROL 65 mg/dL (9-159); POTASSIUM 4.5 mmol/L (3.5-5.1); SGOT/AST 28 IU/L (3-35); SGPT/ALT 44 U/L (12-78); SODIUM 137 mmol/L (136-145); TOTAL IRON BINDING CAPACITY 356 ug/dl (250-450); TOTAL PROTEIN 8.4 gm/dL (6.4-8.2); TRIGLYCERIDES 213 mg/dl (<150)
[2020-12-04 09:05] LABS: ALKALINE PHOSPHATASE 113 U/L (45-117)
== END | disposition home or self-care (01) ==
LOC: LAB 08:03
PROVIDERS: Hospitalist; ATTEND Internal Medicine Nephrology
DX: E11.40 Type 2 diabetes mellitus with diabetic neuropathy, unspecified (principal); D50.8 Other iron deficiency anemias

== ENCOUNTER → 2021-03-06 | Outpatient (CLI) | payer OTHER | END | disposition home or self-care (01) | LOC: RESCLI 00:20 | PROVIDERS: ATTEND Family Medicine | DX: I11.0 Hypertensive heart disease with heart failure (principal); I50.22 Chronic systolic (congestive) heart failure; I48.91 Unspecified atrial fibrillation; E11.40 Type 2 diabetes mellitus with diabetic neuropathy, unspecified; I25.10 Atherosclerotic heart disease of native coronary artery without angina pectoris; M06.9 Rheumatoid arthritis, unspecified; E66.01 Morbid (severe) obesity due to excess calories; E55.9 Vitamin D deficiency, unspecified; E78.5 Hyperlipidemia, unspecified; K21.9 Gastro-esophageal reflux disease without esophagitis; I73.9 Peripheral vascular disease, unspecified; F51.01 Primary insomnia; J45.30 Mild persistent asthma, uncomplicated; G89.29 Other chronic pain; D50.8 Other iron deficiency anemias; Z79.4 Long term (current) use of insulin; Z89.512 Acquired absence of left leg below knee; Z79.899 Other long term (current) drug therapy; Z79.82 Long term (current) use of aspirin; Z98.890 Other specified postprocedural states; Z87.891 Personal history of nicotine dependence; Z88.8 Allergy status to other drugs, medicaments and biological substances ==

== ENCOUNTER → 2021-03-07 | Outpatient (CLI) | payer OTHER ==
[2021-03-07 11:13] LABS: BASO # 0.1 10*3/uL (0.0-0.1); BASO % 0.6 % (0.0-1.0); EOS # 0.3 10*3/uL (0.0-0.4); EOS % 3.1 % (1.0-4.0); HEMATOCRIT 51.3 % (42.0-52.0); LYMPH % 27.4 % (27.0-41.0); MEAN CELL VOLUME 80.9 fl (80.0-94.0); MEAN CORPUSCULAR HGB 25.4 pg (27.0-31.0); MEAN CORPUSCULAR HGB CONC 31.4 g/dl (33.0-37.0); MONO # 1.1 10*3/uL (0.1-1.0); MONO % 9.7 % (3.0-9.0); NEUT # 6.5 10*3/uL (2.3-7.9); NEUT % 58.8 % (47.0-73.0); PLATELET COUNT AUTOMATED 413 10*3/uL (130-400); RED BLOOD COUNT 6.34 10*6/uL (4.50-5.90); RED CELL DISTRI WIDTH 15.9 % (0-14.5)
[2021-03-07 11:43] LABS: ALBUMIN 3.4 gm/dl (3.1-4.5); ALKALINE PHOSPHATASE 80 U/L (45-117); BUN 22 mg/dl (7-24); CHLORIDE 105 mmol/L (98-107); CHOLESTEROL 144 mg/dL (<200); CREATININE 1.26 mg/dL (0.70-1.30); FREE T4 0.87 ng/dl (0.76-1.46); LDL CHOLESTEROL 66 mg/dL (9-159); POTASSIUM 4.6 mmol/L (3.5-5.1); SGOT/AST 42 IU/L (3-35); SGPT/ALT 48 U/L (12-78); SODIUM 138 mmol/L (136-145); TOTAL PROTEIN 8.1 gm/dL (6.4-8.2); TRIGLYCERIDES 212 mg/dl (<150)
[2021-03-07 12:56] LABS: VITAMIN D, 25-HYDROXY 27.6 ng/mL (30-100)
== END | disposition home or self-care (01) ==
LOC: LAB 10:51
PROVIDERS: ATTEND Internal Medicine
DX: Z00.00 Encounter for general adult medical examination without abnormal findings (principal); I12.9 Hypertensive chronic kidney disease with stage 1 through stage 4 chronic kidney disease, or unspecified chronic kidney disease; E11.22 Type 2 diabetes mellitus with diabetic chronic kidney disease; N18.30 Chronic kidney disease, stage 3 unspecified; E78.2 Mixed hyperlipidemia

== ENCOUNTER → 2021-06-05 | Outpatient (CLI) | payer OTHER | END | disposition home or self-care (01) | LOC: RESCLI 01:40 | PROVIDERS: ATTEND Student in an Organized Health Care Education/Training Program | DX: E11.40 Type 2 diabetes mellitus with diabetic neuropathy, unspecified (principal); E08.42 Diabetes mellitus due to underlying condition with diabetic polyneuropathy; I11.0 Hypertensive heart disease with heart failure; I50.22 Chronic systolic (congestive) heart failure; I48.91 Unspecified atrial fibrillation; I25.10 Atherosclerotic heart disease of native coronary artery without angina pectoris; M06.9 Rheumatoid arthritis, unspecified; E66.01 Morbid (severe) obesity due to excess calories; E55.9 Vitamin D deficiency, unspecified; E78.5 Hyperlipidemia, unspecified; K21.9 Gastro-esophageal reflux disease without esophagitis; I73.9 Peripheral vascular disease, unspecified; F51.01 Primary insomnia; J45.30 Mild persistent asthma, uncomplicated; Z89.512 Acquired absence of left leg below knee; D50.8 Other iron deficiency anemias; Z79.4 Long term (current) use of insulin; Z79.899 Other long term (current) drug therapy; Z98.890 Other specified postprocedural states ==

== ENCOUNTER → 2021-09-04 | Outpatient (CLI) | payer OTHER | END | disposition home or self-care (01) | LOC: RESCLI 01:59 | PROVIDERS: ATTEND Internal Medicine | DX: I48.91 Unspecified atrial fibrillation (principal); I11.0 Hypertensive heart disease with heart failure; I50.22 Chronic systolic (congestive) heart failure; E11.40 Type 2 diabetes mellitus with diabetic neuropathy, unspecified; I25.10 Atherosclerotic heart disease of native coronary artery without angina pectoris; M06.9 Rheumatoid arthritis, unspecified; E66.01 Morbid (severe) obesity due to excess calories; E55.9 Vitamin D deficiency, unspecified; E78.5 Hyperlipidemia, unspecified; K21.9 Gastro-esophageal reflux disease without esophagitis; I73.9 Peripheral vascular disease, unspecified; F51.01 Primary insomnia; J45.30 Mild persistent asthma, uncomplicated; G89.29 Other chronic pain; D50.8 Other iron deficiency anemias; E83.52 Hypercalcemia; Z12.11 Encounter for screening for malignant neoplasm of colon; L57.0 Actinic keratosis; G62.9 Polyneuropathy, unspecified; E08.42 Diabetes mellitus due to underlying condition with diabetic polyneuropathy; Z79.4 Long term (current) use of insulin; Z89.512 Acquired absence of left leg below knee; Z79.899 Other long term (current) drug therapy; Z79.82 Long term (current) use of aspirin ==

== ENCOUNTER → 2022-02-25 | Outpatient (CLI) | payer OTHER ==
[2022-02-25 09:34] LABS: BASO # 0.1 10*3/uL (0.0-0.1); BASO % 0.7 % (0.0-1.0); EOS # 0.4 10*3/uL (0.0-0.4); EOS % 4.3 % (1.0-4.0); HEMATOCRIT 48.1 % (42.0-52.0); LYMPH # 2.8 10*3/uL (1.3-4.4); LYMPH % 28.3 % (27.0-41.0); MEAN CELL VOLUME 81.3 fl (80.0-94.0); MEAN CORPUSCULAR HGB 25.5 pg (27.0-31.0); MEAN CORPUSCULAR HGB CONC 31.4 g/dl (33.0-37.0); MEAN PLATELET VOLUME 8.9 fl (9.6-12.3); MONO # 1.1 10*3/uL (0.1-1.0); MONO % 10.9 % (3.0-9.0); NEUT # 5.5 10*3/uL (2.3-7.9); NEUT % 55.5 % (47.0-73.0); PLATELET COUNT AUTOMATED 373 10*3/uL (130-400); RED BLOOD COUNT 5.92 10*6/uL (4.50-5.90); RED CELL DISTRI WIDTH 16.7 % (0-14.5)
[2022-02-25 09:58] LABS: BUN 22 mg/dl (7-24); CHLORIDE 106 mmol/L (98-107); CHOLESTEROL 152 mg/dL (<200); CREATININE 1.21 mg/dL (0.70-1.30); POTASSIUM 4.5 mmol/L (3.5-5.1); SGOT/AST 24 IU/L (3-35); SGPT/ALT 36 U/L (12-78); SODIUM 138 mmol/L (136-145)
[2022-02-25 10:05] LABS: ALKALINE PHOSPHATASE 92 U/L (45-117); FREE T4 0.87 ng/dl (0.76-1.46); TOTAL PROTEIN 7.6 gm/dL (6.4-8.2); TRIGLYCERIDES 463 mg/dl (<150)
[2022-02-25 10:17] LABS: VITAMIN D, 25-HYDROXY 23.9 ng/mL (30-100)
== END | disposition home or self-care (01) ==
LOC: LAB 08:51
PROVIDERS: ATTEND Internal Medicine
DX: E11.65 Type 2 diabetes mellitus with hyperglycemia (principal); I10 Essential (primary) hypertension; E55.9 Vitamin D deficiency, unspecified; Z13.89 Encounter for screening for other disorder; Z13.0 Encounter for screening for diseases of the blood and blood-forming organs and certain disorders involving the immune mechanism; Z13.1 Encounter for screening for diabetes mellitus; Z13.21 Encounter for screening for nutritional disorder; Z13.220 Encounter for screening for lipoid disorders; Z13.228 Encounter for screening for other metabolic disorders; Z13.6 Encounter for screening for cardiovascular disorders; Z13.9 Encounter for screening, unspecified

== ENCOUNTER → 2022-04-09 | Outpatient (CLI) | payer OTHER | LOC: ORTHO 03:32 | PROVIDERS: ATTEND Orthopaedic Surgery | DX: M20.11 Hallux valgus (acquired), right foot (principal); M21.961 Unspecified acquired deformity of right lower leg ==

== ENCOUNTER → 2022-04-16 | Outpatient (CLI) | payer OTHER | END | disposition home or self-care (01) | LOC: US 00:21 | PROVIDERS: ATTEND Orthopaedic Surgery | DX: I99.8 Other disorder of circulatory system (principal); I70.201 Unspecified atherosclerosis of native arteries of extremities, right leg; E11.9 Type 2 diabetes mellitus without complications; I11.9 Hypertensive heart disease without heart failure; R20.2 Paresthesia of skin ==

== ENCOUNTER → 2022-05-07 | Outpatient (CLI) | payer OTHER ==
[2022-05-07 11:28] LABS: BASO # 0.1 10*3/uL (0.0-0.1); BASO % 0.8 % (0.0-1.0); EOS # 0.4 10*3/uL (0.0-0.4); EOS % 3.8 % (1.0-4.0); HEMATOCRIT 47.1 % (42.0-52.0); LYMPH # 2.8 10*3/uL (1.3-4.4); LYMPH % 26.5 % (27.0-41.0); MEAN CELL VOLUME 81.3 fl (80.0-94.0); MEAN CORPUSCULAR HGB 26.3 pg (27.0-31.0); MEAN CORPUSCULAR HGB CONC 32.3 g/dl (33.0-37.0); MEAN PLATELET VOLUME 8.8 fl (9.6-12.3); MONO # 0.9 10*3/uL (0.1-1.0); MONO % 8.7 % (3.0-9.0); NEUT # 6.4 10*3/uL (2.3-7.9); NEUT % 59.9 % (47.0-73.0); PLATELET COUNT AUTOMATED 349 10*3/uL (130-400); RED BLOOD COUNT 5.79 10*6/uL (4.50-5.90); RED CELL DISTRI WIDTH 16.4 % (0-14.5); WHITE BLOOD COUNT 10.6 10*3/uL (4.8-10.8)
[2022-05-07 11:38] LABS: INTERNATIONAL NORM RATIO 1.1 (2.0-3.5)
[2022-05-07 11:41] LABS: BUN 23 mg/dl (9-23); CHLORIDE 102 mmol/L (98-107); CREATININE 1.16 mg/dL (0.70-1.30); POTASSIUM 4.4 mmol/L (3.4-5.1); SODIUM 133 mmol/L (136-145)
== END | disposition home or self-care (01) ==
LOC: LAB 11:07
PROVIDERS: ATTEND Surgery Vascular Surgery
DX: Z01.812 Encounter for preprocedural laboratory examination (principal); I70.201 Unspecified atherosclerosis of native arteries of extremities, right leg

== ENCOUNTER → 2022-06-17 | Outpatient (CLI) | payer OTHER ==
[2022-06-17 09:25] LABS: BASO # 0.1 10*3/uL (0.0-0.1); BASO % 0.7 % (0.0-1.0); EOS # 0.4 10*3/uL (0.0-0.4); EOS % 4.1 % (1.0-4.0); HEMATOCRIT 49.5 % (42.0-52.0); LYMPH # 2.6 10*3/uL (1.3-4.4); LYMPH % 26.4 % (27.0-41.0); MEAN CELL VOLUME 81.5 fl (80.0-94.0); MEAN CORPUSCULAR HGB 25.4 pg (27.0-31.0); MEAN CORPUSCULAR HGB CONC 31.1 g/dl (33.0-37.0); MONO % 9.9 % (3.0-9.0); NEUT # 5.7 10*3/uL (2.3-7.9); NEUT % 58.6 % (47.0-73.0); PLATELET COUNT AUTOMATED 334 10*3/uL (130-400); RED BLOOD COUNT 6.07 10*6/uL (4.50-5.90); RED CELL DISTRI WIDTH 17.5 % (0-14.5); WHITE BLOOD COUNT 9.8 10*3/uL (4.8-10.8)
[2022-06-17 09:40] LABS: BUN 19 mg/dl (9-23); CHLORIDE 100 mmol/L (98-107); POTASSIUM 4.3 mmol/L (3.4-5.1)
[2022-06-17 09:45] LABS: ACT PARTIAL THROMBO TIME 29.6 SECONDS (20.0-32.1); INTERNATIONAL NORM RATIO 1.1 (2.0-3.5)
== END | disposition home or self-care (01) ==
LOC: LAB 09:03
PROVIDERS: ATTEND Surgery Vascular Surgery
DX: Z01.818 Encounter for other preprocedural examination (principal); R79.1 Abnormal coagulation profile; I73.9 Peripheral vascular disease, unspecified; I25.2 Old myocardial infarction

== ENCOUNTER → 2022-09-10 | Outpatient (CLI) | payer OTHER | END | disposition home or self-care (01) | LOC: RESCLI 00:39 | PROVIDERS: ATTEND Internal Medicine | DX: E11.40 Type 2 diabetes mellitus with diabetic neuropathy, unspecified (principal); I25.10 Atherosclerotic heart disease of native coronary artery without angina pectoris; G62.9 Polyneuropathy, unspecified; F51.01 Primary insomnia; M06.9 Rheumatoid arthritis, unspecified; I11.0 Hypertensive heart disease with heart failure; I50.22 Chronic systolic (congestive) heart failure; E78.5 Hyperlipidemia, unspecified; K21.9 Gastro-esophageal reflux disease without esophagitis; Z88.8 Allergy status to other drugs, medicaments and biological substances; Z87.891 Personal history of nicotine dependence; Z79.84 Long term (current) use of oral hypoglycemic drugs; Z79.899 Other long term (current) drug therapy; Z79.02 Long term (current) use of antithrombotics/antiplatelets ==

== ENCOUNTER → 2022-09-19 | Day surgery (SDC) | payer OTHER ==
[~2022-09-19] VITALS: Ht 170.1 cm; Wt 113.4 kg
[2022-09-19 07:50] VITALS: BP 179/61
[2022-09-19 09:00] VITALS: BP 200/69
[2022-09-19 09:15] VITALS: BP 198/71
[2022-09-19 09:30] VITALS: BP 178/60
== END | disposition home or self-care (01) ==
LOC: SDC 09-16 12:30
PROVIDERS: ATTEND Surgery
DX: Z12.11 Encounter for screening for malignant neoplasm of colon (principal); D12.2 Benign neoplasm of ascending colon; D12.3 Benign neoplasm of transverse colon; K57.30 Diverticulosis of large intestine without perforation or abscess without bleeding; Z86.010 Personal history of colon polyps; I10 Essential (primary) hypertension; E78.5 Hyperlipidemia, unspecified; E11.40 Type 2 diabetes mellitus with diabetic neuropathy, unspecified; M06.9 Rheumatoid arthritis, unspecified; I48.91 Unspecified atrial fibrillation; Z95.5 Presence of coronary angioplasty implant and graft; I25.10 Atherosclerotic heart disease of native coronary artery without angina pectoris; I25.2 Old myocardial infarction; Z87.891 Personal history of nicotine dependence; Z89.421 Acquired absence of other right toe(s); Z79.899 Other long term (current) drug therapy

== ENCOUNTER → 2022-11-11 | Outpatient (CLI) | payer OTHER | END | disposition home or self-care (01) | LOC: US 14:32 | PROVIDERS: ATTEND Internal Medicine | DX: I65.23 Occlusion and stenosis of bilateral carotid arteries (principal); I25.10 Atherosclerotic heart disease of native coronary artery without angina pectoris ==

== ENCOUNTER → 2023-04-18 | Outpatient (CLI) | payer OTHER ==
[2023-04-18 09:15] LABS: BASO # 0.1 10*3/uL (0.0-0.1); BASO % 0.7 % (0.0-1.0); EOS # 0.5 10*3/uL (0.0-0.4); EOS % 4.7 % (1.0-4.0); HEMATOCRIT 49.3 % (42.0-52.0); LYMPH # 3.3 10*3/uL (1.3-4.4); LYMPH % 33.7 % (27.0-41.0); MEAN CELL VOLUME 83.1 fl (80.0-94.0); MEAN CORPUSCULAR HGB 26.5 pg (27.0-31.0); MEAN CORPUSCULAR HGB CONC 31.8 g/dl (33.0-37.0); MEAN PLATELET VOLUME 9.1 fl (9.6-12.3); MONO % 9.9 % (3.0-9.0); NEUT # 4.9 10*3/uL (2.3-7.9); NEUT % 50.7 % (47.0-73.0); PLATELET COUNT AUTOMATED 339 10*3/uL (130-400); RED BLOOD COUNT 5.93 10*6/uL (4.50-5.90); RED CELL DISTRI WIDTH 16.6 % (0-14.5); WHITE BLOOD COUNT 9.8 10*3/uL (4.8-10.8)
[2023-04-18 10:01] LABS: ALKALINE PHOSPHATASE 83 U/L (46-116); BUN 14 mg/dl (9-23); CHLORIDE 103 mmol/L (98-107); CHOLESTEROL 159 mg/dL (<200); LDL CHOLESTEROL 62 mg/dL (9-159); POTASSIUM 4.4 mmol/L (3.4-5.1); SGPT/ALT 35 U/L (5-49); TOTAL PROTEIN 7.6 gm/dL (6.0-8.0); TRIGLYCERIDES 327 mg/dl (<150)
[2023-04-18 10:03] LABS: VITAMIN D, 25-HYDROXY 33.4 ng/mL (30-100)
== END | disposition home or self-care (01) ==
LOC: LAB 08:56
PROVIDERS: ATTEND Internal Medicine
DX: Z13.0 Encounter for screening for diseases of the blood and blood-forming organs and certain disorders involving the immune mechanism (principal); Z13.1 Encounter for screening for diabetes mellitus; Z13.21 Encounter for screening for nutritional disorder; Z13.220 Encounter for screening for lipoid disorders; Z13.228 Encounter for screening for other metabolic disorders; Z13.29 Encounter for screening for other suspected endocrine disorder; Z13.6 Encounter for screening for cardiovascular disorders; Z13.89 Encounter for screening for other disorder; Z13.9 Encounter for screening, unspecified; I10 Essential (primary) hypertension; E11.65 Type 2 diabetes mellitus with hyperglycemia; E11.9 Type 2 diabetes mellitus without complications; E55.9 Vitamin D deficiency, unspecified